=== PATIENT | male | born 1930 | race Caucasian/White ===

== ENCOUNTER 2018-09-24 04:45 | Inpatient (IN) | payer MEDICARE, OTHER ==
[2018-09-24] MEDS ORDERED: NS 0.9% 1000 ML** 2,000 ML IV ONE (05:02)
--- NOTE | 2018-09-24 05:22 | ED ---
GI/ HPI - HPI Summary HPI Summary: An 88 y/o male brought in by [facility] ambulance presents to [facility] with aa chief complaint of rectal bleeding. Per EMS, the patient was found in the bathroom. The patient reports that he started walking to the bathroom when he felt what he thought was stool leaving his rectum, but it turned out to be blood. He notes that he fell, and is unsure if he lost consciousness, but does not believe he did, or thinks that it may have only been for a few seconds. He reports that he has had a colonoscopy and had a polyp removed which turned out to be benign. Hx of Parkinsons. 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 Severity: Mild Current Severity: Mild Associated Signs and Symptoms: Positive: Blood w/Stool, Other: - fall, unsure if he lost consciousness - Additional Pertinent History Primary Care Physician: MAGO - Allergy/Home Medications Allergies/Adverse Reactions: Allergies Allergy/AdvReac Type Severity Reaction Status Date / Time MS Statins [Statins] Allergy Unknown Verified 03/17/16 09:54 Reaction Details PMH/Surg Hx/FS Hx/Imm Hx Endocrine/Hematology History: Reports: Hx Diabetes - DM2, Hx Thyroid Disease - Hypothyroidism Denies: Hx Anemia Cardiovascular History: Reports: Hx Coronary Artery Disease, Hx Hypercholesterolemia, Hx Hypertension Denies: Hx Deep Vein Thrombosis, Other Cardiovascular Problems/Disorders Respiratory History: Reports: Hx Seasonal Allergies Denies: Hx Asthma, Hx Chronic Obstructive Pulmonary Disease (COPD) GI History: Reports: Hx Gastroesophageal Reflux Disease, Other GI Disorders - CONSTIPATION Denies: Hx Hiatal Hernia History: Reports: Hx Benign Prostatic Hyperplasia, Other Problems/ Disorders - HX BPH, TURP, frequent UTIs Musculoskeletal History: Denies: Hx Arthritis, Hx Gout, Other Musculoskeletal History Sensory History: Reports: Hx Cataracts, Hx Contacts or Glasses Denies: Hx Hearing Aid Opthamlomology History: Reports: Hx Cataracts, Hx Contacts or Glasses Neurological History: Reports: Hx Nerve Disease - PARKINSONS DISEASE Denies: Hx Headaches, Hx Migraine, Hx Seizures, Hx Spinal Cord Injury, Other Neuro Impairments/Disorders - Surgical History Surgery Procedure, Year, and Place: TURP X3, [facility]. RIGHT CATARACT. Osteomyelitis R lower leg, R arm Hx Anesthesia Reactions: No - Family History Known Family History: Positive: Other - no FHx of anesthesia reaction Family History: No FHx anesthesia reaction - Social History Alcohol Use: None Alcohol Amount: 1 PER 2 DAYS Substance Use Type: Reports: None Smoking Status (MU): Former Smoker Have You Smoked in the Last Year: No Review of Systems Positive: Other - positive: rectal bleed Neurological: Other - Positive: unsure if he lost consciousness All Other Systems Reviewed And Are Negative: Yes Physical Exam - Summary Physical Exam Summary: Appearance: Elderly male lying in bed comfortably in no acute distress, vital signs show that the patient is hemodynamically stable. Skin: Warm, dry, no obvious rash, Dried blood in peritoneum and down both legs. Eyes: sclera anicteric, no conjunctival pallor ENT: mucous membranes moist, pharynx appears normal Neck: Supple, nontender Respiratory: Clear to auscultation, no signs of respiratory distress Cardiovascular: Normal S1, S2. No murmurs. Normal distal pulses in tibial and radial bilaterally. Abdomen: Soft, nontender, normal active bowel sounds present Musculoskeletal: Normal, Strength/ROM Intact Neurological: A&Ox3, awake and alert, mentation is normal, speech is fluent and appropriate Psychiatric: affect is normal, does not appear anxious or depressed Triage Information Reviewed: Yes Vital Signs Reviewed: Yes Diagnostics - Laboratory Result Diagrams: 09/24/18 05:50 09/24/18 05:50 Lab Statement: Any lab studies that have been ordered have been reviewed, and results considered in the medical decision making process. GIGU Course/Dx - Course Course Of Treatment: An 88 y/o male brought in by [facility] ambulance presents to [facility] with aa chief complaint of rectal bleeding. Per EMS, the patient was found in the bathroom. The patient reports that he started walking to the bathroom when he felt what he thought was stool leaving his rectum, but it turned out to be blood. He notes that he fell, and is unsure if he lost consciousness, but does not believe he did, or thinks that it may have only been for a few seconds. He reports that he has had a colonoscopy and had a polyp removed which turned out to be benign. Hx of Parkinsons. The physical exam showed that the patient is an elderly male lying in bed comfortably in no acute distress, vital signs show that the patient is hemodynamically stable, pt has dried blood in peritoneum and down both legs. In the ED course the patient was given sodium chloride IV. Bloodwork and chemistries obtained. Case discussed with Dr. Dougherty, hospitalist, who accepted the patient for admission. - Physician Notifications Discussed Care Of Patient With: Bill Dougherty Time Discussed With Above Provider: 06:53 Instructed by Provider To: Admit As Inpatient Discharge - Sign-Out/Discharge Documenting (check all that apply): Patient Departure - admit Patient Received Moderate/Deep Sedation with Procedure: No - Discharge Plan Condition: Fair Disposition: ADMITTED TO [facility] Referrals: Paul Blair MD [Primary Care Provider] - - Attestation Statements Document Initiated by Scribe: Yes Documenting Scribe: Sina Livingston Provider For Whom Scribe is Documenting (Include Credential): Trae Donovan MD Scribe Attestation: Sina Trammell, scribed for Trae Donovan MD on 09/24/18 at 0659. Status of Scribe Document: Ready
[2018-09-24 06:20] LABS: ABS Basophils 0 10^3/ul (0-0.2); ABS Eosinophils 0.2 10^3/ul (0-0.6); ABS Lymphocytes 0.9 10^3/ul (1.0-4.8); ABS Monocytes 0.9 10^3/ul (0-0.8); ABS Nucleated RBC 0 10^3/ul; Eosinophil % 1.4 %; Hematocrit 42 % (36-46); Lymphocyte % 8.3 %; Mean Corpuscular HGB Conc 33 g/dL (31-36); Mean Corpuscular Hemoglobin 30 pg (27-31); Mean Corpuscular Volume 89 fL (80-94); Mean Platelet Volume 8.9 fL (7.4-10.4); Nucleated Red Blood Cells % 0.1; Platelet Count 312 10^3/uL (150-450); Red Blood Count 4.74 10^6 /uL (4.18-5.48); Red Cell Distribution Width 13 % (10.5-15); White Blood Count 11.1 10^3/uL (3.5-10.8)
[2018-09-24 06:26] LABS: Activated Partial Thrombo Time 31.2 seconds (26.0-36.3); INR 0.99 (0.77-1.02)
[2018-09-24 06:37] LABS: Albumin 3.8 g/dL (3.2-5.2); Albumin/Globulin Ratio 1.2 (1-3); EGFR African American 58.8 (>60); EGFR Non-African American 48.6 (>60); Globulin 3.2 g/dL (2-4); Potassium 4.7 mmol/L (3.5-5.0); Total Bilirubin 0.5 mg/dL (0.2-1.0)
[2018-09-24] MEDS ORDERED: Pantoprazole IV* 40 MG IV ONE (09:31)
[2018-09-24 10:06] LABS: Urine Appearance Cloudy; Urine Bacteria Absent (Absent); Urine Bilirubin Negative (Negative); Urine Blood Negative (Negative); Urine Color Yellow; Urine Glucose 1+(50 mg/dL) (Negative); Urine Ketones Trace (Negative); Urine Nitrite Negative (Negative); Urine Protein Negative (Negative); Urine Red Blood Cell 2+(6-10/hpf) (Absent); Urine Specific Gravity 1.014 (1.010-1.030); Urine Squamous Epithelial Cell Present (Absent); Urine Urobilinogen Negative (Negative); Urine White Blood Cell 3+(>20/hpf) (Absent)
[2018-09-24] MEDS: Selegiline TAB* 5 MG PO SCH ×2 (10:36→11:46)
[2018-09-24] MEDS: rOPINIRole TAB* 1 MG PO SCH ×3 (10:37→20:39)
[2018-09-24] MEDS: Levothyroxine TAB* 50 MCG TAB PO SCH (10:37)
[2018-09-24] MEDS: Carbidopa/Levodop CR 50/200(*) TAB.CR PO SCH ×2 (10:37→14:49)
[2018-09-24] MEDS: Finasteride TAB* 5 MG PO SCH (10:37)
[2018-09-24] MEDS: NS 0.9% 1000 ML** 1,000 ML IV SCH ×2 (10:39→22:55)
[2018-09-24] MEDS: Levothyroxine TAB* 175 MCG TAB PO SCH (11:45)
[2018-09-24] MEDS ORDERED: PEG 3000 GI LAVAGE* 1 GALLON PO ONE (12:16)
[2018-09-24 12:25] LABS: ABS Basophils 0 10^3/ul (0-0.2); ABS Eosinophils 0.1 10^3/ul (0-0.6); ABS Lymphocytes 1.4 10^3/ul (1.0-4.8); ABS Neutrophils 9.2 10^3/ul (1.5-7.7); ABS Nucleated RBC 0 10^3/ul; Eosinophil % 1.2 %; Hematocrit 42 % (36-46); Hemoglobin 14.1 g/dL (14.0-18.0); Lymphocyte % 12.1 %; Mean Corpuscular HGB Conc 33 g/dL (31-36); Mean Corpuscular Hemoglobin 29 pg (27-31); Mean Corpuscular Volume 88 fL (80-94); Mean Platelet Volume 8.8 fL (7.4-10.4); Nucleated Red Blood Cells % 0; Platelet Count 315 10^3/uL (150-450); Red Cell Distribution Width 13 % (10.5-15); White Blood Count 11.8 10^3/uL (3.5-10.8)
--- NOTE | 2018-09-24 13:09 | HP ---
HISTORY AND PHYSICAL: DATE OF ADMISSION: 09/24/18 ATTENDING PROVIDER: Bill Dougherty MD PRIMARY CARE PROVIDER: Dr. Blair. CHIEF COMPLAINT: Bleeding per rectum followed by a fall. HISTORY OF PRESENT ILLNESS: Carson Edward is an 88-year-old male with past medical history of Parkinson's disease; coronary artery disease, status post LAD stent, 2008; hypertension; hyperlipidemia; hypothyroidism; BPH, status post TURP; GERD; wdd-drfmhlu-ujhiqlxwu diabetes mellitus, type 2. Around 3:30 morning of admission, he was ambulating to the bathroom; but right before he got to the toilet, he felt a little bit dizzy and fell, but did not lose consciousness and was noted to have bleeding that he did not get a good look at , but described per report as bright red blood. He was transported to the [facility] [place]. He was hemodynamically stable, heart rate is 71, blood pressure 142/69. Initial hemoglobin was 14.0, INR 0.99. He was referred to hospitalist service for admission and he has since had another bowel movement that was bright red blood with a few small clots and also a little bit of stool. He denies any abdominal pain, nausea, or vomiting. He does suffer from constipation problems for which he is on MiraLAX. Three weeks ago, he had a hard time defecating and gave himself a water enema and that helped to relieve some of the constipation, but still has hard pebble-like stools especially since then. He has, in the emergency room, been given 2 L of normal saline. Dr. Tatiana Dewey of GI has been consulted. On clarification, he is a little bit unclear on exactly when this episode of constipation requiring water enema was, first he said 3 weeks ago, then he said 3 days ago, then he said 2 weeks ago, then admitted he is not exactly sure. PAST MEDICAL HISTORY: Includes: 1. Parkinson's disease. 2. Coronary artery disease, status post LAD stent, 2008. 3. Hypertension. 4. Hyperlipidemia. 5. Hypothyroidism. 6. BPH, status post TURP. 7. Frequent urinary tract infections. 8. GERD. 9. Hib-xybjmvd-efmieacyc diabetes mellitus, type 2. PAST SURGICAL HISTORY: Includes surgeries for his right leg osteomyelitis, his right arm; these were many decades ago. MEDICATIONS: Include: 1. Omeprazole 20 mg daily. 2. Aspirin 81 mg daily. 3. Levothyroxine a total of 225 mcg p.o. daily (50 plus 175). 4. Finasteride 5 mg daily. 5. Selegiline 5 mg p.o. q.a.m. and at noon. 6. MiraLAX 17 g p.o. daily p.r.n. 7. Metformin 500 mg p.o. daily. 8. Ropinirole 1 mg p.o. t.i.d. 9. Rytary (carbidopa/levodopa) 48.75-195 mg 3 tabs each 3 times a day. The patient says that he does no longer takes meclizine 25 mg p.o. q.6 hours though it was recently filled at his pharmacy. ALLERGIES: He has intolerance to statins "making him sick." FAMILY HISTORY: His father of heart disease at age 84. His mother of heart disease at age 79. He has 2 sisters who are both older than him, who are absolutely healthy. 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 He is also a former 6-pack beer night drinker but he has drunk much much less since intermediate 18 years ago. He desires to be a full code though would probably not like prolonged life support. His medical surrogate is his daughter, Janet Salazar, residing in [place]. He has 2 home health aides/caregivers, one by the name of Martha, who are there approximately 2 to 3 hours each day. REVIEW OF SYSTEMS: A complete 14-point review of systems is negative except as per HPI specifically, he denies any shortness of breath, chest pain though he does get winded with a lot of exertion. Denies night sweats, though sometimes takes his blankets off. He has dropped a little bit of weight ever since his Parkinson's disease diagnosis 18 years ago, but nothing precipitous recently. PHYSICAL EXAMINATION GENERAL APPEARANCE: In no acute distress. VITAL SIGNS: Temperature 98.1, heart rate 71, respiratory rate 18 to 28, satting 98% on room air, and blood pressure 142/69. HEENT: Normocephalic, atraumatic. Pupils are equal, round, and reactive to light. Extraocular motions intact. No scleral icterus. NECK: Supple. LUNGS: Clear to auscultation bilaterally with no wheezing, rales, or rhonchi. CARDIO: Regular rate and rhythm. No murmurs, rubs, or gallops. ABDOMEN: Soft. Some slight tenderness, right lower quadrant. He also has some slight tenderness of right flank. No rebound or guarding. EXTREMITIES: Warm, well perfused. No edema. RECTAL: No appreciable external or internal hemorrhoids. Shankar bright red blood present. NEURO: Cranial nerves II through XII intact. No cogwheel rigidity. Commercial Singer strength intact. SKIN: No lesions. No rashes. DIAGNOSTIC STUDIES: Imaging: None. ASSESSMENT AND PLAN: Carson Edward is an 88-year-old male with past medical history of rnu-byports-aqnnifagy diabetes mellitus; Parkinson's disease ; hypothyroidism; coronary artery disease, status post left anterior descending artery stent. He is presenting with episode of acute bright red blood per rectum found at home and now again in the emergency room. Hemoglobin is stable at 14.0, we will track that every 6 hours. He is status post 2 L IV fluid bolus , continue normal saline at 125 cc an hour, n.p.o. except for meds. Dr. Tatiana Dewey of GI has been consulted, who did a rectal exam. Differential includes likely lower gastrointestinal bleed or very brisk upper gastrointestinal bleed, which I thought because as likely considering his hemodynamic stability and lack of NSAID use, has at most diverticulosis, possible hemorrhoid, arteriovenous malformation, possible colon cancer. We will follow up GI recommendations. Possible but he may need a colonoscopy during this admission depending on clinical course. I think he is stable for telemetry floor and does not need to come into the ICU. For his Parkinson's disease, continue his carbidopa/levodopa with formulary substitute for his Rytary to Sinemet 3 tabs 3 times a day. He takes 1600 and 2400. Also, continue his ropinirole and selegiline 5 mg twice a day, q.a.m. and noon. For his restless legs syndrome, continue his ropinirole 1 mg t.i.d. For his coronary artery disease, continue his aspirin 81 mg daily, but hold it until tomorrow. If still actively bleeding, we would stop it or hold it. I am just going to cancel it for now. Give him IV Protonix 80 mg IV once and 40 mg IV daily. He does have frequent urinary tract infections, has some right flank pain for few weeks, , afebrile, we will follow up the urinalysis. He is a full code. Medical surrogate is his daughter, Janet Salazar. We will call Martha Akbar, one of his aides, to inform of admission and see if she can bring in his Rytary. [id number]/[facility] #: [id number] [facility] HOSPITALFadi
--- NOTE | 2018-09-24 14:06 | CONS ---
GASTROENTEROLOGY CONSULTATION REPORT: DATE OF CONSULT: 09/24/18 REQUESTING CONSULT: Dr. Dougherty. REASON FOR CONSULT: Rectal bleeding. HISTORY OF PRESENT ILLNESS: Mr. Edward is an 88-year-old English gentleman with a history of Parkinson's disease; coronary artery disease status post stenting, diabetes, hypertension, hyperlipidemia, and hypothyroidism, who is admitted with rectal bleeding x1 day. Mr. Edward reports that he was in usual state of health until early this morning when he felt the urge to have a bowel movement. He got up to go to the bathroom when he noticed blood dripping down his leg. He then went to sit down on the toilet and fell. He is fairly confident that he did not lose consciousness. He thinks that this was a mechanical fall. He was brought to the ER by ambulance. On interview, Mr. Edward states that he feels well overall. He has had some discomfort along his right flank, but it seems to be worse in certain positions or with straining. Denies any abdominal pain, nausea, or vomiting. He had a history of reflux symptoms long time ago, although this resolved after his CABG which would argue that this was more cardiac-related chest pain. He has a history of constipation with significant constipation last week for which he used MiraLAX. He thinks his last colonoscopy was around age 70. He thinks that a polyp may have been removed, although he also mentions having hemorrhoids. No prior history of GI bleeding. PAST MEDICAL HISTORY: 1. Parkinson's disease. 2. Cardiac disease, status post stenting (no recent stents). 3. Diabetes. 4. Hypothyroidism. 5. Hyperlipidemia. 6. Hypertension. 7. Constipation. 8. BPH. 9. Cataracts. PAST SURGICAL HISTORY: 1. TURP x3. 2. Right cataract surgery. MEDICATIONS: 1. Aspirin 81 mg daily. 2. Proscar 5 mg daily. 3. Levothyroxine daily (dose unclear). 4. Metformin 500 mg daily. 5. Omeprazole 20 mg daily. 6. Ropinirole 1 mg t.i.d. 7. Rytary. 8. Selegiline 5 mg daily in the morning and at 12:00 p.m. 9. MiraLAX p.r.n. 10. Meclizine p.r.n. ALLERGIES: The patient reports allergies to STATINS. FAMILY HISTORY: No known GI or liver disease. SOCIAL HISTORY: No recent alcohol use. No drug use. Former smoker. The patient is from [facility]. REVIEW OF SYSTEMS: Complete review of systems is reviewed and negative except as above. PHYSICAL EXAM: Vital Signs: Temp 97.9, heart rate 68, blood pressure 164/89, 96% on room air. General: Very pleasant elderly gentleman. In no acute distress. The patient is a fairly good historian. HEENT: Mucous membranes moist. Intact sclerae. Cardiovascular: Regular rate and rhythm. Pulm: Lungs clear to auscultation inferiorly. Abdomen: Soft, nontender, nondistended. +BS. Rectal: JOSE J performed, no external hemorrhoids. There was a small amount of bright red blood seen on rectal exam. Skin: No jaundice. Neuro: A and O x3. DIAGNOSTIC STUDIES/LAB DATA: White count 11.1, hemoglobin 14, hematocrit 42, platelet count 312. INR 0.99. Sodium 137, BUN 29, creatinine 1.38. ALT is low at 3, otherwise LFT panel is normal. Imaging: None. IMPRESSION AND PLAN: Mr. Edward is an 88-year-old gentleman with medical history of coronary artery disease, status post stenting, on aspirin; Parkinson' s disease; diabetes; hypertension; hyperlipidemia; and hypothyroidism, who was admitted with rectal bleeding x1 day and fall. Mr. Edward has been hemodynamically stable since admission. We only have 1 set of labs so far, which demonstrated a normal H&H. Mr. Edward does have some red blood on rectal exam, although he is not passing large volumes of bloody stools. Favor a diagnosis of diverticular bleeding in this patient. Differential also includes arteriovenous malformation. I have a lower suspicion for an upper gastrointestinal bleed, although I am including this on differential given the fall this morning as I am unable to definitively say that he did not have a syncopal event. I discussed possible sources of bleeding with Mr. Edward and the various ways to approach his case. At this point, I would recommend giving Mr. Edward some laxative for colon purge. I would like to see if the blood clears with laxative which would suggest resolved bleeding. If the blood counts drop or fail to plateau and/or the bleeding does not clear with laxative , then I would recommend pursuing endoscopic evaluation. Mr. Edward is in agreement with this plan. Additionally, if the blood counts drop significantly and/or stool is noted to become more melenic, then I would favor an EGD to rule out a brisk upper gastrointestinal bleed. I think that this is an unlikely scenario given the patient's clinical stability and absence of melena on current exam. - Continue to monitor CBC every 6 to 8 hours. The patient is due for a blood draw now which I expect might show some drop. - Recommend clear diet for now. - Please order the patient GoLYTELY and place at his bedside. I would recommend that he try to drink at least one-third or half of the GoLYTELY prep to help with the colonic purge. If the bleeding resolves and his labs are not showing a precipitous drop, then he can discontinue drinking the prep. Conversely, if he continues to have bleeding and/or labs are dropping, then I would recommend that he continue the prep with a tentative plan for a colonoscopy tomorrow. Dr. Fernandez will discuss the case with the patient's team tomorrow to determine final plans. - PPI IV b.i.d. for now is reasonable. This can be discontinued within the next 24 hours if concern remains low for upper gastrointestinal bleed. - Would recommend continuing aspirin 81 mg daily given the patient's CAD history. Thank you very much for this consult. Please contact GI for any acute clinical change. [id number]/[facility] #: [id number] MENG
[2018-09-24] MEDS: Aspirin 81 mg CHEW TAB* 81 MG TAB.CHEW PO SCH (14:49)
[2018-09-24] MEDS: LEVODOPA PO SCH (15:32)
[2018-09-24] MEDS: Fludrocortisone Acetate TAB* 0.1 MG PO SCH (15:32)
[2018-09-24] MEDS: CARBIDOPA PO SCH (15:32)
[2018-09-24 18:59] LABS: ABS Basophils 0 10^3/ul (0-0.2); ABS Eosinophils 0.1 10^3/ul (0-0.6); ABS Lymphocytes 1.1 10^3/ul (1.0-4.8); ABS Monocytes 0.8 10^3/ul (0-0.8); ABS Neutrophils 7.1 10^3/ul (1.5-7.7); ABS Nucleated RBC 0 10^3/ul; Eosinophil % 1.5 %; Hematocrit 39 % (36-46); Lymphocyte % 12.1 %; Mean Corpuscular HGB Conc 33 g/dL (31-36); Mean Corpuscular Hemoglobin 29 pg (27-31); Mean Corpuscular Volume 88 fL (80-94); Mean Platelet Volume 8.8 fL (7.4-10.4); Nucleated Red Blood Cells % 0; Platelet Count 303 10^3/uL (150-450); Red Blood Count 4.43 10^6 /uL (4.18-5.48); Red Cell Distribution Width 13 % (10.5-15); White Blood Count 9.1 10^3/uL (3.5-10.8)
--- NOTE | 2018-09-24 19:33 | CONS ---
GASTROENTEROLOGY CONSULT: ADDENDUM: Differential should also include internal hemorrhoids. Rectal exam may be limited in ability to identify internal hemorrhoids. [id number]/[facility] #: [id number] [facility]
[2018-09-25] MEDS: LEVODOPA PO SCH ×3 (00:10→15:12)
[2018-09-25] MEDS: CARBIDOPA PO SCH ×3 (00:10→15:12)
[2018-09-25 00:58] LABS: ABS Basophils 0 10^3/ul (0-0.2); ABS Eosinophils 0.2 10^3/ul (0-0.6); ABS Lymphocytes 1.4 10^3/ul (1.0-4.8); ABS Monocytes 1.2 10^3/ul (0-0.8); ABS Neutrophils 6.9 10^3/ul (1.5-7.7); ABS Nucleated RBC 0 10^3/ul; Eosinophil % 2.2 %; Hematocrit 39 % (36-46); Hemoglobin 12.8 g/dL (14.0-18.0); Lymphocyte % 14.6 %; Mean Corpuscular HGB Conc 33 g/dL (31-36); Mean Corpuscular Hemoglobin 29 pg (27-31); Mean Corpuscular Volume 88 fL (80-94); Mean Platelet Volume 8.9 fL (7.4-10.4); Nucleated Red Blood Cells % 0.1; Platelet Count 282 10^3/uL (150-450); Red Cell Distribution Width 13 % (10.5-15); White Blood Count 9.8 10^3/uL (3.5-10.8)
[2018-09-25] MEDS: Levothyroxine TAB* 175 MCG TAB PO SCH (05:50)
[2018-09-25] MEDS: Levothyroxine TAB* 50 MCG TAB PO SCH (05:50)
[2018-09-25 06:10] LABS: ABS Basophils 0 10^3/ul (0-0.2); ABS Eosinophils 0.2 10^3/ul (0-0.6); ABS Lymphocytes 1.5 10^3/ul (1.0-4.8); ABS Monocytes 0.8 10^3/ul (0-0.8); ABS Neutrophils 5.8 10^3/ul (1.5-7.7); ABS Nucleated RBC 0 10^3/ul; Eosinophil % 2.4 %; Hematocrit 40 % (36-46); Hemoglobin 13.4 g/dL (14.0-18.0); Lymphocyte % 17.5 %; Mean Corpuscular HGB Conc 34 g/dL (31-36); Mean Corpuscular Hemoglobin 30 pg (27-31); Mean Corpuscular Volume 87 fL (80-94); Mean Platelet Volume 8.9 fL (7.4-10.4); Nucleated Red Blood Cells % 0; Platelet Count 303 10^3/uL (150-450); Red Blood Count 4.54 10^6 /uL (4.18-5.48); Red Cell Distribution Width 13 % (10.5-15); White Blood Count 8.3 10^3/uL (3.5-10.8)
[2018-09-25 06:26] LABS: BUN/Creatinine Ratio 17.3 (8-20); Calcium 8.4 mg/dL (8.6-10.3); EGFR African American 81.6 (>60); EGFR Non-African American 67.4 (>60); Potassium 3.9 mmol/L (3.5-5.0)
[2018-09-25] MEDS ORDERED: NON FORMULARY MED2 PO SCH (08:00)
[2018-09-25] MEDS: NS 0.9% 1000 ML** 1,000 ML IV SCH (08:14)
[2018-09-25] MEDS: rOPINIRole TAB* 1 MG PO SCH ×2 (08:15→15:12)
[2018-09-25] MEDS: Aspirin 81 mg CHEW TAB* 81 MG TAB.CHEW PO SCH (08:15)
[2018-09-25] MEDS: Finasteride TAB* 5 MG PO SCH (08:15)
[2018-09-25] MEDS: Fludrocortisone Acetate TAB* 0.1 MG PO SCH (08:15)
[2018-09-25] MEDS: Selegiline TAB* 5 MG PO SCH ×2 (08:15→11:40)
[2018-09-25] MEDS ORDERED: Aspirin EC TAB* 81 MG TAB.EC PO SCH (09:00)
[2018-09-25] MEDS ORDERED: Pantoprazole IV* 40 MG IV SCH (09:00)
--- NOTE | 2018-09-25 10:48 | PN ---
Subjective Date of Service: 09/25/18 Interval History: HOSPITALIST PROGRESS NOTE Patient seen and examined at bedside. Care reviewed and d/w Marek Raman RN. As per RN, patient had large BMs earlier today. The first one had blood clots, but the last one had no gross blood. Patient had less than half of his Golytely and reluctant to drink the rest. He denies abdominal pain, N/V. Family History: Unchanged from Admission Social History: Unchanged from Admission Past Medical History: Unchanged from Admission Objective Active Medications: Aspirin (Aspirin 81 Mg Chew Tab*) 81 mg PO DAILY [facility] Last Admin: 09/25/18 08:15 Dose: 81 mg Carbidopa/Levodopa (Rytary Er 48.75 Mg-195 Mg Cap) 3 cap PO TID@0000,0800,1600 [facility] Last Admin: 09/25/18 08:15 Dose: 3 cap Finasteride (Proscar Tab*) 5 mg PO DAILY [facility] Last Admin: 09/25/18 08:15 Dose: 5 mg Fludrocortisone Acetate (Florinef Tab*) 0.1 mg PO DAILY [facility] Last Admin: 09/25/18 08:15 Dose: 0.1 mg Sodium Chloride (Ns 0.9% 1000 Ml) 1,000 mls @ 125 mls/hr IV PER RATE [facility] Last Admin: 09/25/18 08:14 Dose: 125 mls/hr Levothyroxine Sodium (Synthroid Tab*) 175 mcg PO DAILY@0600 [facility] Last Admin: 09/25/18 05:50 Dose: 175 mcg Levothyroxine Sodium (Synthroid Tab*) 50 mcg PO DAILY@0600 [facility] Last Admin: 09/25/18 05:50 Dose: 50 mcg Pantoprazole Sodium (Protonix Iv*) 40 mg IV DAILY [facility] Last Admin: 09/25/18 08:15 Dose: 40 mg Ropinirole HCl (Requip Tab*) 1 mg PO TID [facility] Last Admin: 09/25/18 08:15 Dose: 1 mg Selegiline HCl (Eldepryl Tab*) 5 mg PO QAM [facility] Last Admin: 09/25/18 08:15 Dose: 5 mg Selegiline HCl (Eldepryl Tab*) 5 mg PO 1200 [facility] Last Admin: 09/24/18 11:46 Dose: 5 mg Vital Signs - 8 hr 09/25/18 09/25/18 07:41 08:00 Temperature 97.3 F Pulse Rate 72 Respiratory 16 18 Rate Blood Pressure 148/76 (mmHg) O2 Sat by Pulse 100 Oximetry Oxygen Devices in Use Now: None Appearance: Pleasant elderly gentleman sitting up in a chair in NAD. Eyes: No Scleral Icterus Ears/Nose/Mouth/Throat: Mucous Membranes Moist Neck: Trachea Midline Respiratory: Symmetrical Chest Expansion and Respiratory Effort, Clear to Auscultation Cardiovascular: RRR - Normal S1 and S2 Abdominal: NL Sounds; No Tenderness; No Distention Neurological: - - AAOx2 (self and place), FRANCO Result Diagrams: 09/25/18 11:49 09/25/18 05:45 Assess/Plan/Problems-Billing Assessment: Mr Edward is an 88yo M with PMH of Parkison's disease, CAD, HTN, HLD, hypothyroidism, BPH, GERD, type 2 DM, who presented to ED with painless hematochezia suggestive of diverticular bleed. - Patient Problems (1) Hematochezia Comment: - Suspect diverticular in nature. - Patient reluctant to drink his Golytely, because he thinks the bleeding has stopped. I explained the idea is for him to complete his prep because if he bleeds again he would then have a colonoscopy. He's in agreement but will need lots of reminders - RN aware. - H/H is stable around 13/40. - Continue to monitor. (2) CAD (coronary artery disease) Comment: - Continue Aspirin. (3) Parkinson disease Comment: - Continue Carbidopa/levodopa, selegiline and ropinirole. (4) DVT prophylaxis Comment: - Pharmacological prophylaxis contraindicated in the setting of GI bleed. - SCDs. (5) Full code status Status and Disposition: Inpatient. Continue to monitor H/H. Anticipate d/c in AM if stable.
[2018-09-25 12:07] LABS: ABS Basophils 0 10^3/ul (0-0.2); ABS Eosinophils 0.2 10^3/ul (0-0.6); ABS Lymphocytes 1.2 10^3/ul (1.0-4.8); ABS Monocytes 0.9 10^3/ul (0-0.8); ABS Neutrophils 6.4 10^3/ul (1.5-7.7); ABS Nucleated RBC 0 10^3/ul; Eosinophil % 1.9 %; Hematocrit 40 % (36-46); Lymphocyte % 13.4 %; Mean Corpuscular HGB Conc 33 g/dL (31-36); Mean Corpuscular Hemoglobin 29 pg (27-31); Mean Corpuscular Volume 89 fL (80-94); Mean Platelet Volume 9.3 fL (7.4-10.4); Nucleated Red Blood Cells % 0.1; Platelet Count 293 10^3/uL (150-450); Red Blood Count 4.48 10^6 /uL (4.18-5.48); Red Cell Distribution Width 13 % (10.5-15); White Blood Count 8.6 10^3/uL (3.5-10.8)
--- NOTE | 2018-09-25 15:45 | PN ---
Progress Note - Progress Note Date of Service: 09/25/18 Note: went to see pt at approx. noon today; 2 security officers present in pt's room; I introduced myself to the pt; he was confused as to what type of physician I was, but when he finally realized I was a "colon" doctor, he told me that I was not to exam his colon; when I tried to explain why I was there, he said that he had stopped bleeding and his heart was fine; when I commented about the partially full cups of Golytely on his table, he said that he will not drink anymore of that stuff and told me that I was not needed by him anymore and to go away. From reading the chart, I am unsure if this is an acute change in his MS or chronic issue. Unable to do much for him right now, given his comments. Please re-call GI if pt changes his mind. Thank you. Hgb stable at 13, VSS Pradip Fernandez MD [facility]
[2018-09-25 16:49] VITALS: BP 138/82
--- NOTE | 2018-09-26 11:35 | DS ---
CC: Dr. Paul Blair* DISCHARGE SUMMARY: DATE OF ADMISSION: 09/24/18 DATE OF DISCHARGE: AMA 09/25/18 PRIMARY CARE PROVIDER: Dr. Paul Blair. DISCHARGE DIAGNOSES: Lower gastrointestinal bleed. DISPOSITION: To home. CONDITION: Improved. HISTORY OF PRESENT ILLNESS: An 88-year-old man with Parkinson disease and dementia, coronary artery disease, status post LAD stent 2008, hypertension, hypothyroidism, BPH, status post TURP, type 2 diabetes, presents after a fall on the morning of presentation. While ambulating to the bathroom, he felt dizzy , fell, but did not lose consciousness. When he tried to have a bowel movement , he noticed bright red blood. HOSPITAL COURSE: In the emergency room, initial hemoglobin was 14 with normal INR. He had a bowel movement in the emergency room that was also bright red blood with a few small clots. The patient had denied abdominal pain, nausea, vomiting. The patient was given 2 L of normal saline in the emergency room with repeat hemoglobin decreasing to 13. Hemoglobin throughout evening on day of admission and again on subsequent day had all remained stable. Dr. Melinda Razo of GI was consulted. GI recommended drinking GoLYTELY prep with plan for colonoscopy the following day if hemoglobin downtrended, but the patient can discontinue GI prep if hemoglobin had remained stable. The patient had been declining colonoscopy and states that as he feels fine, he would prefer to return home. He was deemed to not have capacity to refuse medical care given his baseline dementia; however, on night of AMA discharge, the patient's caregiver and next of kin was at bedside and states that she also agrees that he should be able to go home and refuse medical care. She understands the risk of leaving (continued bleed, ) and why we wanted to keep the patient admitted to the hospital. She states she can stay with him in his home and bring him to follow up with his primary care physician within the week. DISCHARGE PLAN: The patient is to return home with his caregiver. They will follow up with PCP within 1 week with a repeat CBC for monitoring. He is to resume his home medications as before. TIME SPENT: Less than 30 minutes spent on this discharge, approximately half of which spent at bedside interviewing patient and discussing risks of leaving against medical advice. [id number]/[facility] #: [id number] [facility]OSPITALFadi
== END 2018-09-25 22:54 | disposition left against medical advice (07) | DRG 379 ==
LOC: ED 04:45 → MEDTELE 08:21
PROVIDERS: ADMIT Internal Medicine; ATTEND Internal Medicine
DX: K92.2 Gastrointestinal hemorrhage, unspecified (principal); E03.9 Hypothyroidism, unspecified; I25.10 Atherosclerotic heart disease of native coronary artery without angina pectoris; I10 Essential (primary) hypertension; E78.00 Pure hypercholesterolemia, unspecified; J30.1 Allergic rhinitis due to pollen; K21.9 Gastro-esophageal reflux disease without esophagitis; N40.0 Benign prostatic hyperplasia without lower urinary tract symptoms; E11.36 Type 2 diabetes mellitus with diabetic cataract; G20 Parkinson's disease; F02.80 Dementia in other diseases classified elsewhere, unspecified severity, without behavioral disturbance, psychotic disturbance, mood disturbance, and anxiety; G25.81 Restless legs syndrome; W17.89XA Other fall from one level to another, initial encounter; E78.5 Hyperlipidemia, unspecified; Z87.440 Personal history of urinary (tract) infections; Z98.41 Cataract extraction status, right eye; Z88.8 Allergy status to other drugs, medicaments and biological substances; Z87.891 Personal history of nicotine dependence; Z95.5 Presence of coronary angioplasty implant and graft; Z82.49 Family history of ischemic heart disease and other diseases of the circulatory system; Y92.002 Bathroom of unspecified non-institutional (private) residence as the place of occurrence of the external cause
CPT/HCPCS: 36415; 80048; 80053; 81003; 81015; 85025; 85610; 85730; 86850; 86900; 86901; 87077; 87086; 87186; 99284; A9270-GY

== ENCOUNTER 2018-09-27 03:12 | Inpatient (IN) | payer MEDICARE, OTHER ==
--- NOTE | 2018-09-27 03:33 | ED ---
GI/ HPI - HPI Summary HPI Summary: This patient is an 88 year old M brought in by ambulance to ED with a chief complaint of rectal bleeding at 0130 today. He was seen in the ED 3 days ago for one episode of rectal bleeding 4 days ago. He says that he was not bleeding yesterday. The patient lives by himself. The patient rates the pain 0/10 in severity. Symptoms aggravated by nothing. Symptoms alleviated by nothing. Patient denies LOC and any pain. - History of Current Complaint Time Seen by Provider: 09/27/18 03:14 Stated Complaint: "RECTAL BLEED" PER EMS Hx Obtained From: Patient Onset/Duration: Started Hours Ago, Resolved Timing: Intermittent Current Severity: None Associated Signs and Symptoms: Positive: Blood w/Stool, Other: - denies any pain and LOC - Additional Pertinent History Primary Care Physician: [id number] - Allergy/Home Medications Allergies/Adverse Reactions: Allergies Allergy/AdvReac Type Severity Reaction Status Date / Time Bvmudid-Sab-Tbh Reductase Allergy Unknown Verified 09/24/18 09:43 Inhibitor Reaction Details PMH/Surg Hx/FS Hx/Imm Hx Endocrine/Hematology History: Reports: Hx Diabetes - DM2, Hx Thyroid Disease - Hypothyroidism Denies: Hx Anemia Cardiovascular History: Reports: Hx Coronary Artery Disease, Hx Hypercholesterolemia, Hx Hypertension Denies: Hx Deep Vein Thrombosis, Other Cardiovascular Problems/Disorders Respiratory History: Reports: Hx Seasonal Allergies Denies: Hx Asthma, Hx Chronic Obstructive Pulmonary Disease (COPD) GI History: Reports: Hx Gastroesophageal Reflux Disease, Other GI Disorders - CONSTIPATION Denies: Hx Hiatal Hernia History: Reports: Hx Benign Prostatic Hyperplasia, Other Problems/ Disorders - HX BPH, TURP, frequent UTIs Musculoskeletal History: Denies: Hx Arthritis, Hx Gout, Other Musculoskeletal History Sensory History: Reports: Hx Cataracts, Hx Contacts or Glasses Denies: Hx Hearing Aid Opthamlomology History: Reports: Hx Cataracts, Hx Contacts or Glasses Neurological History: Reports: Hx Nerve Disease - PARKINSONS DISEASE Denies: Hx Headaches, Hx Migraine, Hx Seizures, Hx Spinal Cord Injury, Other Neuro Impairments/Disorders - Surgical History Surgery Procedure, Year, and Place: TURP X3, [facility]. RIGHT CATARACT. Osteomyelitis R lower leg, R arm Hx Anesthesia Reactions: No - Family History Known Family History: Positive: Other - no FHx of anesthesia reaction Family History: No FHx anesthesia reaction - Social History Alcohol Use: Rare Alcohol Amount: 1 PER 2 DAYS Substance Use Type: Reports: None Smoking Status (MU): Former Smoker Have You Smoked in the Last Year: No Review of Systems Positive: Other - denies any pain Positive: Other - rectal bleeding Neurological: Other - denies LOC All Other Systems Reviewed And Are Negative: Yes Physical Exam - Summary Physical Exam Summary: VITAL SIGNS: Reviewed. GENERAL: Patient is an elderly, well-developed, and nourished MALE OR FEMALE who is lying comfortable in the stretcher. Patient is not in any acute respiratory distress. HEAD AND FACE: No signs of trauma. No ecchymosis, hematomas or skull depressions. No sinus tenderness. EYES: PERRLA, EOMI x 2, No injected conjunctiva, no nystagmus. EARS: Hearing grossly intact. Ear canals and tympanic membranes are within normal limits. MOUTH: Oropharynx within normal limits. NECK: Supple, trachea is midline, no adenopathy, no JVD, no carotid bruit, no c- spine tenderness, neck with full ROM. CHEST: Symmetric, no tenderness at palpation LUNGS: Clear to auscultation bilaterally. No wheezing or crackles. CVS: Regular rate and rhythm, S1 and S2 present, no murmurs or gallops appreciated. ABDOMEN: Soft, non-tender. No signs of distention. No rebound no guarding, and no masses palpated. Bowel sounds are normal. EXTREMITIES: FROM in all major joints, no edema, no cyanosis or clubbing. NEURO: Alert and oriented x 3. He was able to give us some hx. No acute neurological deficits. Speech is normal and follows commands. SKIN: Dry and warm RECTAL EXAM: He has blood in his underwear, however there was no active bleeding. Red blood seen on finger exam. No masses and no external hemorrhoids seen. Triage Information Reviewed: Yes Vital Signs On Initial Exam: Initial Vitals Temp Pulse Resp BP Pulse Ox 97.9 F 79 18 119/75 94 09/27/18 03:20 09/27/18 03:20 09/27/18 03:20 09/27/18 03:20 09/27/18 03:20 Vital Signs Reviewed: Yes Diagnostics - Laboratory Result Diagrams: 09/27/18 03:47 09/27/18 03:47 Lab Statement: Any lab studies that have been ordered have been reviewed, and results considered in the medical decision making process. - EKG 0336 Cardiac Rate: NL - 80 BPM EKG Rhythm: Sinus Rhythm Summary of EKG Findings: Normal axis. Normal interval. No ischemic changes. GIGU Course/Dx - Course Assessment/Plan: This patient is an 88 year old M presenting to ED with a chief complaint of rectal bleeding at 0130 today. The patient was admitted on 09/24/18 with rectal bleeding. He was signed out by his videogame designer on 09/26/18. It seems that he refused a colonoscopy. In the ED course, the patient was given fluids. EKG reveals NSR at 80 BPM, normal axis, normal interval, and no ischemic changes. Consulted Dr. Miller about the patient's case and she accepts the patient for admission. The patient will be admitted with dx of lower GI bleed. Patient understands and agrees with this plan. - Diagnoses Differential Diagnoses - Male: Other - lower GI bleed Provider Diagnoses: Lower GI bleed - Physician Notifications Discussed Care Of Patient With: Elva Miller Time Discussed With Above Provider: 04:47 Instructed by Provider To: Admit As Inpatient - Critical Care Time Critical Care Time: 30-74 min - 35 minutes Discharge - Sign-Out/Discharge Documenting (check all that apply): Patient Departure - admit Patient Received Moderate/Deep Sedation with Procedure: No - Discharge Plan Condition: Stable Disposition: ADMITTED TO [facility] Referrals: Paul Blair MD [Primary Care Provider] - - Attestation Statements Document Initiated by Scribe: Yes Documenting Scribe: Johnathan Salgado Provider For Whom Scribe is Documenting (Include Credential): Neda Garcia MD Scribe Attestation: Johnathan Trammell scribed for Neda Garcia MD on 09/27/18 at 0447. Status of Scribe Document: Ready
[2018-09-27 03:59] LABS: ABS Basophils 0.1 10^3/ul (0-0.2); ABS Eosinophils 0.2 10^3/ul (0-0.6); ABS Lymphocytes 1.3 10^3/ul (1.0-4.8); ABS Neutrophils 7.7 10^3/ul (1.5-7.7); ABS Nucleated RBC 0 10^3/ul; Eosinophil % 1.8 %; Hematocrit 37 % (36-46); Hemoglobin 12.3 g/dL (14.0-18.0); Mean Corpuscular HGB Conc 34 g/dL (31-36); Mean Corpuscular Hemoglobin 30 pg (27-31); Mean Corpuscular Volume 88 fL (80-94); Mean Platelet Volume 9.3 fL (7.4-10.4); Nucleated Red Blood Cells % 0; Platelet Count 328 10^3/uL (150-450); Red Blood Count 4.15 10^6 /uL (4.18-5.48); Red Cell Distribution Width 13 % (10.5-15); White Blood Count 10.3 10^3/uL (3.5-10.8)
[2018-09-27 04:08] LABS: Activated Partial Thrombo Time 32.4 seconds (26.0-36.3); INR 1.04 (0.77-1.02)
[2018-09-27 04:15] LABS: Albumin 3.7 g/dL (3.2-5.2); Albumin/Globulin Ratio 1.3 (1-3); BUN/Creatinine Ratio 12.2 (8-20); Calcium 8.7 mg/dL (8.6-10.3); EGFR African American 58.4 (>60); EGFR Non-African American 48.2 (>60); Globulin 2.9 g/dL (2-4); Potassium 4.1 mmol/L (3.5-5.0); Total Bilirubin 0.5 mg/dL (0.2-1.0); Total Protein 6.6 g/dL (6.4-8.9)
[2018-09-27] MEDS: NS 0.9% 1000 ML** 1,000 ML IV SCH ×2 (04:24→20:16)
[2018-09-27] MEDS ORDERED: Acetaminophen TAB* 325 MG PO PRN (06:15)
[2018-09-27] MEDS ORDERED: LEVODOPA PO SCH (09:00)
[2018-09-27] MEDS ORDERED: CARBIDOPA PO SCH (09:00)
--- NOTE | 2018-09-27 09:17 | HP ---
HISTORY AND PHYSICAL: ADDENDUM: DIAGNOSTIC STUDIES/LAB DATA: Hemoglobin is 12.3 from baseline 13 on discharge 2 days ago, INR 1.04, creatinine 1.39 which is at baseline from prior admission, BUN 17. LFTs unremarkable. ASSESSMENT AND PLAN: An 88-year-old man with Parkinson disease, diabetes, hypothyroid, coronary tasha ry disease, is presenting with acute bright red blood per rectum, likely lower gastrointestinal bleed , although brisk upper gastrointestinal bleed is likely; however, would expect the patient's hemoglob in to be much lower, blood to be mixed with black, and also BUN to be more elevated, most likely dive rticulosis, hemorrhoid, arteriovenous malformation but also could be colon cancer. 1. Gastrointestinal bleed. We will continue to monitor hemoglobin closely, likely that he will need a colonoscopy again during this admission, although he refused that last admission. We will consult GI this morning. 2. Parkinson disease. Continue carbidopa/levodopa formulary substitute. 3. For coronary artery disease, we will hold the patient's aspirin. The patient is full code with monty jimenez proxy Janet Leung. The patient also states he allows Martha Akbar, one of his home healt h aides, to make decisions for him and she is his closest local contact. TIME SPENT: Approximately 60 minutes spent on admission of this patient, more than half of which was spent at bedside for interview and exam. [id number]/[facility] #: [id number]
[2018-09-27] MEDS ORDERED: Levothyroxine TAB* 100 MCG TAB ONE (09:34)
[2018-09-27] MEDS ORDERED: Levothyroxine TAB* 75 MCG TAB ONE (09:35)
[2018-09-27] MEDS: Fludrocortisone Acetate TAB* 0.1 MG PO SCH (09:42)
[2018-09-27] MEDS: Pantoprazole TAB * 40 MG TAB PO SCH (09:42)
[2018-09-27] MEDS: Finasteride TAB* 5 MG PO SCH (09:43)
[2018-09-27] MEDS: Levothyroxine TAB* 175 MCG TAB PO SCH (09:43)
[2018-09-27] MEDS: Levothyroxine TAB* 50 MCG TAB PO SCH (09:43)
[2018-09-27] MEDS: rOPINIRole TAB* 1 MG PO SCH ×3 (11:02→20:15)
[2018-09-27] MEDS: Selegiline TAB* 5 MG PO SCH ×2 (11:02→14:31)
[2018-09-27 12:11] LABS: ABS Basophils 0 10^3/ul (0-0.2); ABS Eosinophils 0.2 10^3/ul (0-0.6); ABS Lymphocytes 1.3 10^3/ul (1.0-4.8); ABS Monocytes 0.8 10^3/ul (0-0.8); ABS Nucleated RBC 0 10^3/ul; Eosinophil % 2.1 %; Hematocrit 35 % (36-46); Hemoglobin 11.7 g/dL (14.0-18.0); Lymphocyte % 15.6 %; Mean Corpuscular HGB Conc 34 g/dL (31-36); Mean Corpuscular Hemoglobin 30 pg (27-31); Mean Corpuscular Volume 88 fL (80-94); Nucleated Red Blood Cells % 0.1; Platelet Count 286 10^3/uL (150-450); Red Blood Count 3.95 10^6 /uL (4.18-5.48); Red Cell Distribution Width 13 % (10.5-15); White Blood Count 8.3 10^3/uL (3.5-10.8)
[2018-09-27 12:12] LABS: Hematocrit 34 % (36-46); Hemoglobin 11.5 g/dL (14.0-18.0); Mean Corpuscular HGB Conc 34 g/dL (31-36); Mean Corpuscular Hemoglobin 29 pg (27-31); Mean Corpuscular Volume 87 fL (80-94); Platelet Count 279 10^3/uL (150-450); Red Blood Count 3.91 10^6 /uL (4.18-5.48); Red Cell Distribution Width 13 % (10.5-15); White Blood Count 8.3 10^3/uL (3.5-10.8)
[2018-09-27] MEDS: LEVODOPA PO SCH ×2 (14:30→20:15)
[2018-09-27] MEDS: CARBIDOPA PO SCH ×2 (14:30→20:15)
--- NOTE | 2018-09-27 17:26 | PN ---
Subjective Date of Service: 09/27/18 Interval History: Patient seen in bed. appeared comfortable. he did have 2 large BRBPR this morning once arrived to the floor. no pain or dizziness. his admission Hct noted to be 12.31 Stat Hct ordered and Hct down to 11.5! ordered repeat CBC at 6 pm. I spoke to patient and family and he is willing to proceed with the colonoscopy. I consulted with GI. Awaiting official full formal recommendations Past Medical History: Unchanged from Admission Objective Active Medications: Acetaminophen (Tylenol Tab*) 650 mg PO Q4H PRN PRN Reason: FEVER/PAIN Carbidopa/Levodopa (Rytary Er 48.75 Mg-195 Mg Cap) 3 cap PO TID [facility] Last Admin: 09/27/18 14:30 Dose: 3 cap Finasteride (Proscar Tab*) 5 mg PO DAILY [facility] Last Admin: 09/27/18 09:43 Dose: 5 mg Fludrocortisone Acetate (Florinef Tab*) 0.1 mg PO DAILY [facility] Last Admin: 09/27/18 09:42 Dose: 0.1 mg Sodium Chloride (Ns 0.9% 1000 Ml) 1,000 mls @ 150 mls/hr IV PER RATE [facility] Last Admin: 09/27/18 04:24 Dose: 150 mls/hr Levothyroxine Sodium (Synthroid Tab*) 175 mcg PO DAILY@0600 [facility] Last Admin: 09/27/18 09:43 Dose: 175 mcg Levothyroxine Sodium (Synthroid Tab*) 50 mcg PO DAILY@0600 [facility] Last Admin: 09/27/18 09:43 Dose: 50 mcg Pantoprazole Sodium (Protonix Tab*) 40 mg PO DAILY [facility] Last Admin: 09/27/18 09:42 Dose: 40 mg Ropinirole HCl (Requip Tab*) 1 mg PO TID [facility] Last Admin: 09/27/18 14:31 Dose: 1 mg Selegiline HCl (Eldepryl Tab*) 5 mg PO QAM [facility] Last Admin: 09/27/18 11:02 Dose: 5 mg Selegiline HCl (Eldepryl Tab*) 5 mg PO 1200 [facility] Last Admin: 09/27/18 14:31 Dose: 5 mg Vital Signs - 8 hr 09/27/18 09/27/18 09/27/18 09:28 09:30 10:10 Temperature 96.4 F 96.4 F Pulse Rate 70 70 Respiratory 18 18 Rate Blood Pressure 140/70 140/70 (mmHg) O2 Sat by Pulse 100 100 97 Oximetry 09/27/18 09/27/18 11:15 15:15 Temperature 97.3 F 97.4 F Pulse Rate 65 63 Respiratory 18 20 Rate Blood Pressure 136/67 143/63 (mmHg) O2 Sat by Pulse 100 99 Oximetry Oxygen Devices in Use Now: Nasal Cannula Appearance: Awake, alert. no distress Eyes: No Scleral Icterus, PERRLA, - - EOMI Ears/Nose/Mouth/Throat: NL Teeth, Lips, Gums, Mucous Membranes Moist, - - parkinsonsim facial features Neck: NL Appearance and Movements; NL JVP, Trachea Midline Respiratory: Symmetrical Chest Expansion and Respiratory Effort, Clear to Auscultation Cardiovascular: NL Sounds; No Murmurs; No JVD, RRR, No Edema Abdominal: NL Sounds; No Tenderness; No Distention Extremities: No Edema, - - fine resting tremors Result Diagrams: 09/27/18 11:56 09/27/18 03:47 Assess/Plan/Problems-Billing Assessment: 88 year old male present back to the hospital for reccurent Lower GI bleed. He was discharged 48 hrs ago after he declined his Colonoscopy prep - Patient Problems (1) CAD (coronary artery disease) Current Visit: No Status: Acute Code(s): I25.10 - ATHSCL HEART DISEASE OF [place] CORONARY ARTERY W/O ANG PCTRS SNOMED Code(s): 24541118 Comment: - hold Aspirin now that he is in GI bleed (2) Hematochezia Current Visit: No Status: Acute Code(s): K92.1 - MELENA SNOMED Code(s): 398903877 Comment: - Suspect diverticular in nature. - He declined to drink his Golytely at his last admissions. Given his reccurent GI bleed today and readmission he agreed for the prep. - Continue to monitor Q6hrs. Will start prep and colonoscopy in am (3) Diabetes Current Visit: No Status: Chronic Code(s): E11.9 - TYPE 2 DIABETES MELLITUS WITHOUT COMPLICATIONS SNOMED Code(s): 09192489 Comment: - will place him on accucheck and sliding scale coverage (4) GERD (gastroesophageal reflux disease) Current Visit: No Status: Chronic Code(s): K21.9 - GASTRO-ESOPHAGEAL REFLUX DISEASE WITHOUT ESOPHAGITIS SNOMED Code(s): 344188236 Comment: - Continue pantoprazole 40 mg daily (5) Parkinson disease Current Visit: No Status: Chronic Code(s): G20 - PARKINSON'S DISEASE SNOMED Code(s): 01263608 Comment: - Continue Carbidopa/levodopa, selegiline and ropinirole. (6) DVT prophylaxis Current Visit: No Status: Acute Code(s): YAV3621 - SNOMED Code(s): 909126461 Comment: - SCD instead of Pharmacological prophylaxis contraindicated in the setting of GI bleed.
[2018-09-27] MEDS ORDERED: Dextrose 50% Syringe 50 ML* 25 GM/50 ML SYRINGE IV PUSH PRN (17:55)
[2018-09-27] MEDS ORDERED: PEG 3000 GI LAVAGE* 1 GALLON PO ONE (17:56)
[2018-09-27] MEDS ORDERED: Bisacodyl EC TAB* 5 MG PO ONE (17:56)
[2018-09-27 19:07] LABS: Hematocrit 33 % (36-46)
[2018-09-27] MEDS: Insulin LISPRO* 1 UNITS UNIT SUBCUT SCH (21:30)
--- NOTE | 2018-09-27 22:34 | CONS ---
GASTROENTEROLOGY CONSULTATION REPORT: DATE OF CONSULT: 09/27/18 CONSULTING PROVIDER: Dr. Reyes. REASON FOR CONSULT: Rectal bleeding. HISTORY OF PRESENT ILLNESS: Mr. Edward is an 88-year-old [place] gentleman with a history of Parkinson disease, coronary artery disease status post stenting, diabetes, hypertension, hyperlipidemia, and hypothyroidism, who is readmitted with rectal bleeding. To review, Mr. Edward began noticing rectal bleeding on Tuesday morning. While walking to the bathroom to deal with the rectal bleeding, he had a fall. Fall was felt to be a mechanical fall as opposed to syncopal episode. Admitted to [facility] for observation on Tuesday. Patient was noted to have a slight downtrend in his hemoglobin. and my recommendation was to start colonoscopy prep. Patient declined the colonoscopy and prep on Tuesday, although there is some question of delirium based on reports of his behavior at the time. Hemoglobin remained stable and bleeding seemed to stop. He was therefore discharged. Mr. Edward reports that he was at home for approximately a day and was doing well. He then developed recurrence of rectal bleeding of a fairly large quantity earlier this morning. He was readmitted. On interview, Mr. Edward states that he feels well. No other symptoms. Denies any abdominal pain. No other falls. Of note, Mr. Edward believes that he last had a colonoscopy around age 70. He is not sure if a polyp was removed at this time. He does recall being told he had hemorrhoids. PAST MEDICAL HISTORY: 1. Parkinson disease. 2. Cardiac disease, status post stenting (no recent stents). 3. Diabetes. 4. Hypothyroidism. 5. Hyperlipidemia. 6. Hypertension. 7. Constipation. 8. BPH. 9. Cataracts. PAST SURGICAL HISTORY: 1. TURP x3. 2. Right cataract surgery. MEDICATIONS: 1. Aspirin 81 mg daily. 2. Proscar 5 mg daily. 3. Levothyroxine daily. 4. Metformin 500 mg daily. 5. Omeprazole 20 mg daily. 6. Ropinirole 1 mg t.i.d. 7. Rytary. 8. Selegiline 5 mg daily in the morning and at 12 p.m. 9. MiraLAX. 10. Meclizine p.r.n. ALLERGIES: Patient is allergic to STATINS. FAMILY HISTORY: No known GI or liver disease. SOCIAL HISTORY: No recent alcohol use or drug use. Former smoker. The patient is from [facility]. REVIEW OF SYSTEMS: Complete review of systems reviewed and negative except as mentioned above. PHYSICAL EXAMINATION: Vital Signs: Temperature 97.4, heart rate 66, blood pressure 153/69, 97% on room air. General: Very pleasant elderly gentleman, in no acute distress. HEENT: Mucous membranes are moist. Sclerae anicteric. Cardiovascular: Regular rate and rhythm. Pulm: Lungs clear to auscultation. Abdomen: Soft, nontender, nondistended. Positive bowel sounds. Skin: No jaundice. Neuro: A and O x3. DIAGNOSTIC STUDIES/LAB DATA: White count is 8.3, hemoglobin 11 which is down from 13 at the time of discharge. His hemoglobin was 14.1 on 09/24/18. Platelet count is normal. INR is 1.04. BUN is 17, creatinine is 1.39. Imaging: None recent. IMPRESSION AND RECOMMENDATION: Mr. Edward is an 88-year-old gentleman with a history of coronary artery disease status post stenting and maintained on aspirin, Parkinson disease, diabetes, hypertension, hyperlipidemia, and hypothyroidism, who is re-admitted with rectal bleeding and anemia. Mr. Edward was admitted over the weekend with rectal bleeding and a mechanical fall. He declined colonoscopy and was discharged after a period of hemoglobin stability and absence of ongoing bleeding. After approximately a day at home, he developed recurrent bleeding. Overall, his hemoglobin is down 3 grams from baseline. The bleeding does not appear to be heavy at present nor is he hemodynamically unstable. However, I think it is reasonable to consider colonoscopy given the ongoing bleeding as well as the associated hemoglobin drop. I favor a diagnosis of diverticular bleeding. Differential also includes arteriovenous malformation and a large mass or polyp. Upper gastrointestinal bleeding unlikely given clinical presentation. Mr. Edward confirms that he is willing to proceed with colonoscopy during this admission. He asked appropriate questions regarding the preparation. 1. Clear diet today. NPO after midnight. 2. Please give bisacodyl 20 mg p.o. now followed by GoLYTELY 4 L. 3. Continue to monitor CBC. 4. Tentatively plan for colonoscopy tomorrow assuming the patient is able to complete the prep and remains willing to have this procedure. Thank you very much for this consult. Please contact GI with any clinical change or questions. [id number]/[facility] #: [id number] [facility]
[2018-09-28 00:37] LABS: Hematocrit 32 % (36-46); Hemoglobin 11.2 g/dL (14.0-18.0)
[2018-09-28] MEDS: Levothyroxine TAB* 50 MCG TAB PO SCH (06:08)
[2018-09-28] MEDS: Levothyroxine TAB* 175 MCG TAB PO SCH (06:08)
[2018-09-28 06:11] LABS: ABS Basophils 0 10^3/ul (0-0.2); ABS Eosinophils 0.3 10^3/ul (0-0.6); ABS Lymphocytes 1.5 10^3/ul (1.0-4.8); ABS Monocytes 0.7 10^3/ul (0-0.8); ABS Neutrophils 5.4 10^3/ul (1.5-7.7); ABS Nucleated RBC 0 10^3/ul; Eosinophil % 3.6 %; Hematocrit 33 % (36-46); Hemoglobin 11.2 g/dL (14.0-18.0); Lymphocyte % 18.5 %; Mean Corpuscular HGB Conc 34 g/dL (31-36); Mean Corpuscular Hemoglobin 30 pg (27-31); Mean Corpuscular Volume 88 fL (80-94); Nucleated Red Blood Cells % 0; Platelet Count 274 10^3/uL (150-450); Red Blood Count 3.77 10^6 /uL (4.18-5.48); Red Cell Distribution Width 14 % (10.5-15); White Blood Count 7.9 10^3/uL (3.5-10.8)
[2018-09-28 06:20] LABS: BUN/Creatinine Ratio 11.8 (8-20); Calcium 8.3 mg/dL (8.6-10.3); EGFR African American 83.4 (>60); EGFR Non-African American 68.9 (>60); Magnesium 1.9 mg/dL (1.9-2.7); Phosphorus 2.9 mg/dL (2.5-5.0)
[2018-09-28] MEDS: NS 0.9% 1000 ML** 1,000 ML IV SCH ×2 (07:40→18:14)
[2018-09-28] MEDS: Insulin LISPRO* 1 UNITS UNIT SUBCUT SCH ×4 (08:34→22:12)
[2018-09-28] MEDS ORDERED: Magnesium CITRATE* 300 ML BTL PO ONE (08:53)
[2018-09-28] MEDS: Selegiline TAB* 5 MG PO SCH ×2 (09:38→13:25)
[2018-09-28] MEDS: Fludrocortisone Acetate TAB* 0.1 MG PO SCH (09:38)
[2018-09-28] MEDS: Pantoprazole TAB * 40 MG TAB PO SCH (09:39)
[2018-09-28] MEDS: Finasteride TAB* 5 MG PO SCH (09:39)
[2018-09-28] MEDS: rOPINIRole TAB* 1 MG PO SCH ×3 (09:39→22:17)
[2018-09-28] MEDS: CARBIDOPA PO SCH ×3 (09:39→22:17)
[2018-09-28] MEDS: LEVODOPA PO SCH ×3 (09:39→22:17)
--- NOTE | 2018-09-28 15:07 | PN ---
Subjective Date of Service: 09/28/18 Interval History: Patient seen, doing well no acute events. denies any rectal bleed. He is still drinking the bowel prep but his stool has not cleared yet. awaiting to see if GI will take him without complete prep. Unlikely. Procedure is on hold pending his stool consistency Past Medical History: Unchanged from Admission Objective Active Medications: Acetaminophen (Tylenol Tab*) 650 mg PO Q4H PRN PRN Reason: FEVER/PAIN Carbidopa/Levodopa (Rytary Er 48.75 Mg-195 Mg Cap) 3 cap PO TID [facility] Last Admin: 09/28/18 13:25 Dose: 3 cap Dextrose (D50w Syringe 50 Ml*) 12.5 gm IV PUSH .FOR FS < 60 - SS PRN PRN Reason: FS < 60 Finasteride (Proscar Tab*) 5 mg PO DAILY [facility] Last Admin: 09/28/18 09:39 Dose: 5 mg Fludrocortisone Acetate (Florinef Tab*) 0.1 mg PO DAILY [facility] Last Admin: 09/28/18 09:38 Dose: 0.1 mg Sodium Chloride (Ns 0.9% 1000 Ml) 1,000 mls @ 150 mls/hr IV PER RATE [facility] Last Admin: 09/28/18 07:40 Dose: 150 mls/hr Insulin Human Lispro (Humalog*) 0 units [facility]; Protocol Last Admin: 09/28/18 13:26 Dose: 2 units Levothyroxine Sodium (Synthroid Tab*) 175 mcg PO DAILY@0600 [facility] Last Admin: 09/28/18 06:08 Dose: 175 mcg Levothyroxine Sodium (Synthroid Tab*) 50 mcg PO DAILY@0600 [facility] Last Admin: 09/28/18 06:08 Dose: 50 mcg Pantoprazole Sodium (Protonix Tab*) 40 mg PO DAILY [facility] Last Admin: 09/28/18 09:39 Dose: 40 mg Ropinirole HCl (Requip Tab*) 1 mg PO TID [facility] Last Admin: 09/28/18 13:24 Dose: 1 mg Selegiline HCl (Eldepryl Tab*) 5 mg PO QAM [facility] Last Admin: 09/28/18 09:38 Dose: 5 mg Selegiline HCl (Eldepryl Tab*) 5 mg PO 1200 [facility] Last Admin: 09/28/18 13:25 Dose: 5 mg Vital Signs - 8 hr 09/28/18 09/28/18 08:02 08:04 Temperature 97.5 F Pulse Rate 67 Respiratory 18 18 Rate Blood Pressure 167/73 (mmHg) O2 Sat by Pulse 100 Oximetry Oxygen Devices in Use Now: Nasal Cannula Appearance: Awake, alert. no acute distress Eyes: No Scleral Icterus, - - EOMI Ears/Nose/Mouth/Throat: NL Teeth, Lips, Gums, Mucous Membranes Moist Neck: NL Appearance and Movements; NL JVP, Trachea Midline Respiratory: Symmetrical Chest Expansion and Respiratory Effort, Clear to Auscultation Cardiovascular: NL Sounds; No Murmurs; No JVD, No Edema Abdominal: NL Sounds; No Tenderness; No Distention Result Diagrams: 09/28/18 05:55 09/28/18 05:55 Assess/Plan/Problems-Billing Assessment: 88 year old male present back to the hospital for reccurent Lower GI bleed. He was discharged 48 hrs ago after he declined his Colonoscopy prep - Patient Problems (1) CAD (coronary artery disease) Current Visit: No Status: Acute Code(s): I25.10 - ATHSCL HEART DISEASE OF [place] CORONARY ARTERY W/O ANG PCTRS SNOMED Code(s): 10091647 Comment: - hold Aspirin now that he is in GI bleed (2) Hematochezia Current Visit: No Status: Acute Code(s): K92.1 - MELENA SNOMED Code(s): 145075527 Comment: - Suspect diverticular in nature. - He declined to drink his Golytely at his last admissions. Given his reccurent GI bleed today and readmission he agreed for the prep. - H/H plateauted. still taking his prep and colonoscopy today on hold until his stool clears (3) Diabetes Current Visit: No Status: Chronic Code(s): E11.9 - TYPE 2 DIABETES MELLITUS WITHOUT COMPLICATIONS SNOMED Code(s): 02592995 Comment: - on accucheck and sliding scale coverage (4) GERD (gastroesophageal reflux disease) Current Visit: No Status: Chronic Code(s): K21.9 - GASTRO-ESOPHAGEAL REFLUX DISEASE WITHOUT ESOPHAGITIS SNOMED Code(s): 618681271 Comment: - Continue pantoprazole 40 mg daily (5) Parkinson disease Current Visit: No Status: Chronic Code(s): G20 - PARKINSON'S DISEASE SNOMED Code(s): 57603318 Comment: - Continue Carbidopa/levodopa, selegiline and ropinirole. (6) DVT prophylaxis Current Visit: No Status: Acute Code(s): BWD8483 - SNOMED Code(s): 795778108 Comment: - SCD instead of Pharmacological prophylaxis contraindicated in the setting of GI bleed.
[2018-09-28] MEDS ORDERED: Midazolam* 1 MG/ML 10 ML VIAL (10 MG) ONE (15:26)
[2018-09-28] MEDS ORDERED: fentaNYL* 50 MCG/ML 2 ML VIAL (100 MCG VIAL) ONE (15:26)
[2018-09-28] MEDS ORDERED: PEG 3000 GI LAVAGE* 1 GALLON PO ONE (16:56)
--- NOTE | 2018-09-28 16:58 | PN ---
Progress Note - Progress Note Date of Service: 09/28/18 Note: GI Brief Flex Sig attempted colon note Findings: Very poor prep, full of stool after 4L golyte and mag cit. Able to get to mid/ prox sigmoid but views poor. Reprep and try 09/29 Ordered 4L Golyte. Reggie Younger DO 09/28/18 1500
--- NOTE | 2018-09-28 23:36 | PRO ---
CC: Paul Blair MD * FLEXIBLE SIGMOIDOSCOPY REPORT: DATE OF PROCEDURE: 09/28/18 PRIMARY CARE PHYSICIAN: Paul Blair MD INDICATION FOR PROCEDURE: Rectal bleeding. PROCEDURE PERFORMED: Flexible sigmoidoscopy. MEDICATIONS GIVEN: Include 2 mg IV midazolam, 25 mcg IV fentanyl. DESCRIPTION OF PROCEDURE: After the colonoscopy and flexible sigmoidoscopy procedure including the risks, benefits, and alternatives with the risks not limited to perforation, surgery, missed lesions and/or were explained to the patient, written informed consent was obtained, IV medication was given, and a rectal exam was performed. Rectal exam was unremarkable. The adult Olympus colonoscope was then inserted into the patient's rectum. Immediately, there was poor prep. Given that there was concern for bleeding, I tried to move past this as much as possible. I was able to get to approximately the proximal sigmoid before further advancement would have been detrimental and dangerous. The decision was then made to abort the flexible sigmoidoscopy instead of colonoscopy. No large lesions were identified, but the views were very limited by the poor prep with solid stool and liquid stool throughout. The scope was then removed from the patient. He tolerated procedure well. He returned to the recovery room in stable condition. IMPRESSION: 1. Flexible sigmoidoscopy, proximal colon. 2. Poor prep. 3. No fresh or old blood. RECOMMENDATIONS: We will give another 4 L GoLYTELY tonight and then re-prep. He states he only moves his bowels once a week. This, combined with the Parkinson's, will present a challenging preparation situation, but we will attempt further preparation as it seems to be starting to move well at this point. [id number]/[facility] #: [id number] [facility]
[2018-09-28] MEDS ORDERED: Lactated Ringers 1000 ML Bag* 1,000 ML IV SCH (23:45)
[2018-09-29 00:06] LABS: Hematocrit 33 % (36-46); Mean Corpuscular HGB Conc 34 g/dL (31-36); Mean Corpuscular Hemoglobin 30 pg (27-31); Mean Corpuscular Volume 89 fL (80-94); Mean Platelet Volume 9.4 fL (7.4-10.4); Platelet Count 328 10^3/uL (150-450); Red Blood Count 3.72 10^6 /uL (4.18-5.48); Red Cell Distribution Width 14 % (10.5-15); White Blood Count 9.1 10^3/uL (3.5-10.8)
--- NOTE | 2018-09-29 00:39 | PN ---
Hospitalist Progress Note Cross Coverage Note Called to eval patient after large bloody BM with clots and subsequent low SBP to 90s while seated, 80s while standing. Heart rate during this time was low 60s, slightly below patient's baseline. RN noted patient to appear pale at this time. Pt seen at bedside and denies symptoms. Repeat vitals by RN note SBP improving to 120s. No pallor noted. Pt making inappropriate comments - at baseline. Cap refill < 2 seconds. Likely that this was vasovagal event or post-defecation pre-syncope. Before first presentation to [facility] for GI bleed, pt had similar episode where he noted a large bloody BM and subsequently fainted. If patient was having massive GI bleed, would expect tachycardia, and would not expect his color or SBP to rebound quickly. However his HR decreased (he is not on a beta chloe), which is more typical for neurocardiac pre/syncope, as is return of normal SBP. CBC checked and is at baseline. Will check again at 3AM and 6AM in case of equilibration. Will give 1 L IVF.
[2018-09-29 02:53] LABS: Hematocrit 26 % (36-46); Hemoglobin 8.9 g/dL (14.0-18.0); Mean Corpuscular HGB Conc 34 g/dL (31-36); Mean Corpuscular Hemoglobin 30 pg (27-31); Mean Corpuscular Volume 88 fL (80-94); Mean Platelet Volume 9.2 fL (7.4-10.4); Platelet Count 283 10^3/uL (150-450); Red Blood Count 2.98 10^6 /uL (4.18-5.48); Red Cell Distribution Width 14 % (10.5-15); White Blood Count 8.7 10^3/uL (3.5-10.8)
[2018-09-29] MEDS: NS 0.9% 1000 ML** 1,000 ML IV SCH ×3 (03:24→21:09)
[2018-09-29] MEDS ORDERED: NS 0.9% 1000 ML** 2,000 ML IV ONE ×2 (06:29→06:34)
[2018-09-29] MEDS: Levothyroxine TAB* 175 MCG TAB PO SCH (08:04)
[2018-09-29] MEDS: Levothyroxine TAB* 50 MCG TAB PO SCH (08:04)
[2018-09-29] MEDS: Pantoprazole TAB * 40 MG TAB PO SCH (08:05)
[2018-09-29] MEDS: Fludrocortisone Acetate TAB* 0.1 MG PO SCH (08:05)
[2018-09-29] MEDS: rOPINIRole TAB* 1 MG PO SCH (08:05)
[2018-09-29] MEDS: CARBIDOPA PO SCH ×3 (08:05→22:07)
[2018-09-29] MEDS: Finasteride TAB* 5 MG PO SCH (08:05)
[2018-09-29] MEDS: Selegiline TAB* 5 MG PO SCH ×2 (08:05→12:01)
[2018-09-29] MEDS: LEVODOPA PO SCH ×3 (08:05→22:07)
[2018-09-29] MEDS ORDERED: Haloperidol INJ IV/IM* 5 MG/ML AMP IV SLOW PU PRN ×2 (08:10→15:20)
[2018-09-29] MEDS ORDERED: Haloperidol INJ IV/IM* 5 MG/ML AMP ONE (08:13)
[2018-09-29 09:42] LABS: ABS Basophils 0 10^3/ul (0-0.2); ABS Eosinophils 0 10^3/ul (0-0.6); ABS Lymphocytes 0.9 10^3/ul (1.0-4.8); ABS Monocytes 0.6 10^3/ul (0-0.8); ABS Neutrophils 8.6 10^3/ul (1.5-7.7); ABS Nucleated RBC 0 10^3/ul; Eosinophil % 0.2 %; Hematocrit 32 % (36-46); Hemoglobin 10.4 g/dL (14.0-18.0); Lymphocyte % 8.6 %; Mean Corpuscular HGB Conc 33 g/dL (31-36); Mean Corpuscular Hemoglobin 29 pg (27-31); Mean Corpuscular Volume 89 fL (80-94); Mean Platelet Volume 9.5 fL (7.4-10.4); Nucleated Red Blood Cells % 0.1; Platelet Count 263 10^3/uL (150-450); Red Blood Count 3.57 10^6 /uL (4.18-5.48); Red Cell Distribution Width 14 % (10.5-15); White Blood Count 10.1 10^3/uL (3.5-10.8)
--- NOTE | 2018-09-29 10:54 | PN ---
Date of Service: 09/29/18 - [facility] note Critical Care Services: Pt seen and examined at bedside. Overnight events noted. Pt was transferred to ICU after acute episode of lower GI bleed and hypotension. received 2 units pRBC and receiving IVF. Active Medications Generic Name Dose Route Start Last Admin Trade Name Freq PRN Reason Stop Dose Admin Acetaminophen 650 mg 09/27/18 06:15 Tylenol Tab* PO Q4H PRN FEVER/PAIN Carbidopa/Levodopa 3 cap 09/27/18 14:00 09/29/18 08:05 Rytary Er 48.75 Mg-195 Mg Cap PO Not Given TID BERTHA Dextrose 12.5 gm 09/27/18 17:55 D50w Syringe 50 Ml* IV PUSH .FOR FS < 60 - SS PRN FS < 60 Finasteride 5 mg 09/27/18 09:00 09/29/18 08:05 Proscar Tab* PO Not Given DAILY BERTHA Fludrocortisone Acetate 0.1 mg 09/27/18 09:00 09/29/18 08:05 Florinef Tab* PO Not Given DAILY [facility] Haloperidol Lactate 2 mg 09/29/18 08:10 09/29/18 08:14 Haldol Inj Iv/Im* IV SLOW PU 2 mg Q6H PRN Administration AGITATION Sodium Chloride 1,000 mls @ 150 mls/hr 09/27/18 03:45 09/29/18 03:24 Ns 0.9% 1000 Ml IV 150 mls/hr PER RATE BERTHA Administration Insulin Human Lispro 0 units 09/27/18 21:00 09/28/18 22:12 Humalog* SUBCUT Not Given ACHS [facility] Protocol Levothyroxine Sodium 175 mcg 09/27/18 06:45 09/29/18 08:04 Synthroid Tab* PO Not Given DAILY@0600 [facility] Levothyroxine Sodium 50 mcg 09/27/18 06:45 09/29/18 08:04 Synthroid Tab* PO Not Given DAILY@0600 [facility] Pantoprazole Sodium 40 mg 09/27/18 09:00 09/29/18 08:05 Protonix Tab* PO Not Given DAILY [facility] Selegiline HCl 5 mg 09/27/18 09:00 09/29/18 08:05 Eldepryl Tab* PO Not Given QAM [facility] Selegiline HCl 5 mg 09/27/18 12:00 09/28/18 13:25 Eldepryl Tab* PO 5 mg 1200 BERTHA Administration Vital Signs: Temp Pulse Resp BP SpO2 FiO2 99.3 F 91 26 121/55 99 09/29/18 09:03 09/29/18 09:22 09/29/18 09:32 09/29/18 09:22 09/29/18 09:22 Physical Exam: Gen: Pt is alert, confused, combative at times HEENT: PERRLA, no JVD Lungs: Clear to auscultation b/l Cardiac: S1, S2+ Abdomen: Soft, BS+ Extremities: Normal ROM Neuro: Confused, combative Fluid Balance (Past 24 Hours): I= 2979 O= 1025 Net 1953 Intake & Output 09/27/18 09/28/18 09/29/18 09/30/18 06:59 06:59 06:59 06:59 Intake Total 4972 2979 3394 Output Total 775 1025 Balance 4197 1954 3394 Weight 280 lb 280 lb Intake: IV Fluids 1162 2499 2787 LR 999 NS (0.9%) 1162 1500 2787 Oral 3810 480 Packed Cells 607 Output: Urine 775 1025 Other: Estimated Void Large # Bowel Movements 0 3 Estimated Stool Amount Small Large # Voids 1 Labs: Laboratory Results - last 24 hr 09/28/18 09/28/18 09/28/18 11:42 18:20 22:10 WBC RBC Hgb Hct MCV MCH MCHC RDW Plt Count MPV Neut % (Auto) Lymph % (Auto) [place] % (Auto) Eos % (Auto) Baso % (Auto) Absolute Neuts (auto) Absolute Lymphs (auto) Absolute Monos (auto) Absolute Eos (auto) Absolute Basos (auto) Absolute Nucleated RBC Nucleated RBC % Sodium Potassium Chloride Carbon Dioxide Anion Gap BUN Creatinine Est GFR ( Amer) Est GFR (Non-Af Amer) BUN/Creatinine Ratio Glucose POC Glucose (mg/dL) 144 H 113 H 130 H Calcium Phosphorus Magnesium Blood Type Antibody Screen Crossmatch Transfusion React Rpt Donor Unit # Post-Trans Blood Type Post-Trans ONDINA 09/28/18 09/28/18 09/29/18 23:31 23:31 02:46 WBC 9.1 8.7 RBC 3.72 L 2.98 L Hgb 11.0 L 8.9 L Hct 33 L 26 L MCV 89 88 MCH 30 30 MCHC 34 34 RDW 14 14 Plt Count 328 283 MPV 9.4 9.2 Neut % (Auto) Lymph % (Auto) [place] % (Auto) Eos % (Auto) Baso % (Auto) Absolute Neuts (auto) Absolute Lymphs (auto) Absolute Monos (auto) Absolute Eos (auto) Absolute Basos (auto) Absolute Nucleated RBC Nucleated RBC % Sodium Potassium Chloride Carbon Dioxide Anion Gap BUN Creatinine Est GFR ( Amer) Est GFR (Non-Af Amer) BUN/Creatinine Ratio Glucose POC Glucose (mg/dL) Calcium Phosphorus Magnesium Blood Type A Positive Antibody Screen Negative Crossmatch See Detail Transfusion React Rpt Donor Unit # Post-Trans Blood Type Post-Trans ONDINA 09/29/18 09/29/18 09/29/18 09:20 09:20 09:20 WBC 10.1 RBC 3.57 L Hgb 10.4 L Hct 32 L MCV 89 MCH 29 MCHC 33 RDW 14 Plt Count 263 MPV 9.5 Neut % (Auto) 84.9 Lymph % (Auto) 8.6 [place] % (Auto) 6.1 Eos % (Auto) 0.2 Baso % (Auto) 0.2 Absolute Neuts (auto) 8.6 H Absolute Lymphs (auto) 0.9 L Absolute Monos (auto) 0.6 Absolute Eos (auto) 0 Absolute Basos (auto) 0 Absolute Nucleated RBC 0 Nucleated RBC % 0.1 Sodium TNP Potassium TNP Chloride TNP Carbon Dioxide TNP Anion Gap TNP BUN TNP Creatinine TNP Est GFR ( Amer) TNP Est GFR (Non-Af Amer) TNP BUN/Creatinine Ratio TNP Glucose TNP POC Glucose (mg/dL) Calcium TNP Phosphorus TNP Magnesium TNP Blood Type Antibody Screen Crossmatch Transfusion React Rpt Donor Unit # [id number] Post-Trans Blood Type A Positive Post-Trans ONDINA Negative Nutrition: NPO given GI bleed Impression: 88 year old male with Parkinsons, dementia, GERD, CAD s/p stent to LAD, HTN, DM , hypothyroidism admitted 09/27 for reccurent Lower GI bleed. He was discharged 48 hrs ago after he declined his Colonoscopy prep. Sigmoidoscopy was unsuccessful. Had GI bleed again last night on floor and was transferred to ICU. Acute lower GI bleed Hypotension sec to hemorrhagic shock Blood loss anemia Agitation/Dementia Plan: 1.GI bleed: Pt received 2 units pRBC. Received fluid bolus. Has 2 peripheral IVs. c/w IV fluids at 150cc/hr. Contacted GI, possible endoscopy. c/w PPI. Monitor h&H closely, q 6hrs. BP improved after transfusion and fluid bolus. 2.Agitation/confusion: Pt with h/o Parkinsons and dementia. Haldol prn for agitation. Keep hHOB leevated at 30 degrees. Aspiration precautions. c/w meds for Parkinsons. Close monitoring and restraints if concern for safety for self 3. Hypothyroidism: c/w levothyroxine 4. DM: Bl sugars well controlled, will monitor closely. 5. CAD s/p stent: Stable, ASA on hold 6. DVT px: SCD`s Full code Critical Care Time:30 min
[2018-09-29] MEDS: Insulin LISPRO* 1 UNITS UNIT SUBCUT SCH ×4 (11:27→22:11)
[2018-09-29 11:41] LABS: BUN/Creatinine Ratio 10.2 (8-20); Calcium 7.4 mg/dL (8.6-10.3); EGFR African American 64.2 (>60); Magnesium 1.8 mg/dL (1.9-2.7); Phosphorus 2.4 mg/dL (2.5-5.0); Potassium 4.1 mmol/L (3.5-5.0)
[2018-09-29] MEDS ORDERED: Haloperidol INJ IV/IM* 5 MG/ML AMP IV SLOW PU ONE (12:18)
[2018-09-29 13:53] LABS: Hematocrit 26 % (36-46); Mean Corpuscular HGB Conc 34 g/dL (31-36); Mean Corpuscular Hemoglobin 30 pg (27-31); Mean Corpuscular Volume 87 fL (80-94); Mean Platelet Volume 9.5 fL (7.4-10.4); Platelet Count 269 10^3/uL (150-450); Red Blood Count 3.02 10^6 /uL (4.18-5.48); Red Cell Distribution Width 13 % (10.5-15); White Blood Count 9.9 10^3/uL (3.5-10.8)
[2018-09-29 16:18] LABS: Hematocrit 26 % (36-46); Hemoglobin 8.8 g/dL (14.0-18.0)
[2018-09-29] MEDS: Pantoprazole IV* 40 MG IV SCH (16:23)
[2018-09-29] MEDS ORDERED: Midazolam* 1 MG/ML 10 ML VIAL (10 MG) ONE (16:34)
[2018-09-29] MEDS ORDERED: fentaNYL* 50 MCG/ML 2 ML VIAL (100 MCG VIAL) ONE (16:34)
[2018-09-29 20:22] LABS: Hematocrit 27 % (36-46)
[2018-09-30 01:02] LABS: Hematocrit 26 % (36-46); Hemoglobin 8.7 g/dL (14.0-18.0)
--- NOTE | 2018-09-30 02:17 | PRO ---
DATE OF PROCEDURE: 09/27/18 REFERRING PHYSICIAN: Paul Blair PROCEDURE: Flexible sigmoidoscopy with clipping of rectal ulcer. INDICATION: This 88-year-old man has been in and out of the hospital with 2 admissions over the last 5 days. His hemoglobin fell from 14 initially during the first admission down to 8.9. He has been transfused. He has not had any bright red rectal bleeding over the last 10 hours, but had profuse bleeding overnight. There was conflicting information as to the amount of Colyte he may have taken. He has a history of chronic constipation and the question of a stercoral ulcer is raised versus a distal diverticular bleed. Informed consent was obtained from the patient's daughter (Fatimah Leung, ). Endoscopist - Francisco Moreno: versed and fentanyl Findings - he is in the ICU bed 12 sedated with Haldol. The patient was positioned left side down and moderate sedation extended induced with Haldol earlier in the day and then with this procedure, under my direction, midazolam 1 mg and fentanyl 25 mcg. Digital rectal disclosed fresh clots and old clots, mucosa was smooth. Initial views with carbon dioxide insufflation showed an ulcer in the mid rectum at about 8 cm with an adherent clot. It was approached with a clip from below and a good grasp obtained. This took quite a bit of time after evacuating clots and making space for viewing. Another clip was then applied from a retroflexed position at 180-degree orientation from the first approach. The second clip did not retain and slipped off, so a third clip in exactly the same orientation, but gripping a little deeper was applied and this one held. There was no bleeding induced. The area was observed for 10 minutes and there was no further bleeding. A brief view up to about 50 cm showed the material coming from above was very dark brown and olive. It appeared not consistent with fresh bleeding, but a reflux of blood that was progressively as one ascended diluted by down-coming stool. IMPRESSION: 1. Severe chronic constipation. 2. Rectal ulcer - unclear if stercoral versus solitary rectal ulcer from patient digitizing - clipped and hopefully stopped. [id number]/[facility] #: [id number] [facility]
[2018-09-30] MEDS: NS 0.9% 1000 ML** 1,000 ML IV SCH ×3 (04:05→18:02)
[2018-09-30 04:36] LABS: Hematocrit 24 % (36-46); Hemoglobin 8.3 g/dL (14.0-18.0)
[2018-09-30] MEDS: Levothyroxine TAB* 50 MCG TAB PO SCH (06:02)
[2018-09-30] MEDS: Levothyroxine TAB* 175 MCG TAB PO SCH (06:02)
[2018-09-30] MEDS: Pantoprazole IV* 40 MG IV SCH (08:38)
[2018-09-30] MEDS: Fludrocortisone Acetate TAB* 0.1 MG PO SCH (08:38)
[2018-09-30] MEDS: Finasteride TAB* 5 MG PO SCH (08:38)
[2018-09-30] MEDS: Selegiline TAB* 5 MG PO SCH ×2 (08:39→11:49)
[2018-09-30] MEDS: Insulin LISPRO* 1 UNITS UNIT SUBCUT SCH ×4 (09:02→21:18)
--- NOTE | 2018-09-30 09:40 | PN ---
Progress Note - Progress Note Date of Service: 09/30/18 - Transfer note Note: Pt seen and examined at bedside. No acute events o/n. Pt less combative. Had colonoscopy last night and was noted to have rectal ulcer which was clipped. No further bleeding. Hemodynamically stable Active Medications Generic Name Dose Route Start Last Admin Trade Name Freq PRN Reason Stop Dose Admin Acetaminophen 650 mg 09/27/18 06:15 Tylenol Tab* PO Q4H PRN FEVER/PAIN Carbidopa/Levodopa 3 cap 09/27/18 14:00 09/29/18 22:07 Rytary Er 48.75 Mg-195 Mg Cap PO Not Given TID BERTHA Dextrose 12.5 gm 09/27/18 17:55 D50w Syringe 50 Ml* IV PUSH .FOR FS < 60 - SS PRN FS < 60 Finasteride 5 mg 09/27/18 09:00 09/30/18 08:38 Proscar Tab* PO 5 mg DAILY BERTHA Administration Sodium Chloride 1,000 mls @ 150 mls/hr 09/27/18 03:45 09/30/18 04:05 Ns 0.9% 1000 Ml IV 150 mls/hr PER RATE BERTHA Administration Magnesium Sulfate/Dextrose 1 gm in 100 mls @ 200 mls/hr 09/30/18 09:25 Magnesium Sulfate 1 Gm Iv* IV 09/30/18 09:54 ONCE ONE Insulin Human Lispro 0 units 09/27/18 21:00 09/30/18 09:02 Humalog* SUBCUT 3 units ACHS BERTHA Administration Protocol Levothyroxine Sodium 175 mcg 09/27/18 06:45 09/30/18 06:02 Synthroid Tab* PO Not Given DAILY@0600 BERTHA Levothyroxine Sodium 50 mcg 09/27/18 06:45 09/30/18 06:02 Synthroid Tab* PO Not Given DAILY@0600 [facility] Pantoprazole Sodium 40 mg 09/29/18 16:00 09/30/18 08:38 Protonix Iv* IV 40 mg DAILY BERTHA Administration Selegiline HCl 5 mg 09/27/18 09:00 09/30/18 08:39 Eldepryl Tab* PO 5 mg QAM BERTHA Administration Selegiline HCl 5 mg 09/27/18 12:00 09/29/18 12:01 Eldepryl Tab* PO Not Given 1200 BERTHA Vital Signs Temp Pulse Resp BP Pulse Ox 97.0 F 65 18 166/82 99 09/30/18 07:53 09/30/18 06:18 09/30/18 06:23 09/30/18 06:18 09/30/18 06:18 O/E: Pt in NAD HEENT; PERRLA, no JVD Lungs: Good a/e b/l, clear to auscultation b/l CVS: S1, S2+, regular Abd: Soft, BS+ Ext: Normal ROM Skin: No rash Neuro: No focal deficits Laboratory Results - last 24 hr 09/29/18 09/29/18 09/29/18 09:20 09:20 11:10 WBC RBC Hgb Hct MCV MCH MCHC RDW Plt Count MPV Sodium TNP 142 Potassium TNP 4.1 Chloride TNP 111 Carbon Dioxide TNP 24 Anion Gap TNP 7 BUN TNP 13 Creatinine TNP 1.28 H Est GFR ( Amer) TNP 64.2 Est GFR (Non-Af Amer) TNP 53.0 BUN/Creatinine Ratio TNP 10.2 Glucose TNP 150 H POC Glucose (mg/dL) Calcium TNP 7.4 L Phosphorus TNP 2.4 L Magnesium TNP 1.8 L Transfusion React Rpt Donor Unit # [id number] Post-Trans Blood Type A Positive Post-Trans ONDINA Negative Reaction Interpretation 09/29/18 09/29/18 09/29/18 11:15 16:13 16:29 WBC 9.9 RBC 3.02 L Hgb 9.0 L 8.8 L Hct 26 L 26 L MCV 87 MCH 30 MCHC 34 RDW 13 Plt Count 269 MPV 9.5 Sodium Potassium Chloride Carbon Dioxide Anion Gap BUN Creatinine Est GFR ( Amer) Est GFR (Non-Af Amer) BUN/Creatinine Ratio Glucose POC Glucose (mg/dL) 124 H Calcium Phosphorus Magnesium Transfusion React Rpt Donor Unit # Post-Trans Blood Type Post-Trans ONDINA Reaction Interpretation 09/29/18 09/29/18 09/30/18 20:12 22:06 00:55 WBC RBC Hgb 9.0 L 8.7 L Hct 27 L 26 L MCV MCH MCHC RDW Plt Count MPV Sodium Potassium Chloride Carbon Dioxide Anion Gap BUN Creatinine Est GFR ( Amer) Est GFR (Non-Af Amer) BUN/Creatinine Ratio Glucose POC Glucose (mg/dL) 148 H Calcium Phosphorus Magnesium Transfusion React Rpt Donor Unit # Post-Trans Blood Type Post-Trans ONDINA Reaction Interpretation 09/30/18 09/30/18 04:29 08:37 WBC RBC Hgb 8.3 L Hct 24 L MCV MCH MCHC RDW Plt Count MPV Sodium Potassium Chloride Carbon Dioxide Anion Gap BUN Creatinine Est GFR ( Amer) Est GFR (Non-Af Amer) BUN/Creatinine Ratio Glucose POC Glucose (mg/dL) 158 H Calcium Phosphorus Magnesium Transfusion React Rpt Donor Unit # Post-Trans Blood Type Post-Trans ONDINA Reaction Interpretation A/P: 88 year old male with Parkinsons, dementia, GERD, CAD s/p stent to LAD, HTN , DM, hypothyroidism admitted 09/27 for reccurent Lower GI bleed. He was discharged 48 hrs ago after he declined his Colonoscopy prep. Sigmoidoscopy was unsuccessful. Had GI bleed again last night on floor and was transferred to ICU. Pt had sigmoidoscopy at bedside last night. Acute lower GI bleed Hypotension sec to hemorrhagic shock Blood loss anemia Agitation/Dementia Parkinsons DM CAD s/p stent Hypothyroidism Plan: 1.GI bleed: Stable after fluid resuscitation and 2 units pRBC. Had rectal ulcer that was clipped. No further bleeding. Will change PPI to Po. Will start clear liquid diet and advance as tolerated. Management of constipation. Monitor h&H daily. 2. Hypertension: No prior dx. Likely from fluid boluses and pRBC. Stable. Not on meds at home, would monitor and start antihypertensives if continues to be elevated. Pt on fludrocortisone from home, unclear reason. Will hold for now, to be restarted when BP is lower. 2.Agitation/confusion: Pt with h/o Parkinsons and dementia. Haldol prn for agitation. c/w meds for Parkinsons. Ropinorole was held due to interaction with Haldol, to be restarted. Fall precautions 3. Hypothyroidism: c/w levothyroxine 4. DM: Bl sugars well controlled, will monitor closely. 5. CAD s/p stent: Stable, ASA on hold. Might benefit from beta chloe if BP remains elevated. 6. DVT px: SCD`s DNR/DNI, MOLST forms filled, daughter is HCP Stable for transfer to medical floor/telemetry. D/w Dr Bowman
[2018-09-30] MEDS ORDERED: Magnesium Sulfate 1 GM IV* 1 GM/100 ML BAG IV ONE (10:00)
[2018-09-30] MEDS: CARBIDOPA PO SCH ×3 (10:19→20:13)
[2018-09-30] MEDS: LEVODOPA PO SCH ×3 (10:19→20:13)
[2018-09-30 11:01] LABS: Hematocrit 22 % (36-46); Hemoglobin 7.2 g/dL (14.0-18.0); Mean Corpuscular HGB Conc 33 g/dL (31-36); Mean Corpuscular Hemoglobin 30 pg (27-31); Mean Corpuscular Volume 91 fL (80-94); Mean Platelet Volume 9.1 fL (7.4-10.4); Platelet Count 187 10^3/uL (150-450); Red Blood Count 2.37 10^6 /uL (4.18-5.48); Red Cell Distribution Width 15 % (10.5-15); White Blood Count 7.6 10^3/uL (3.5-10.8)
[2018-09-30] MEDS: Famotidine TAB* 20 MG PO SCH (11:49)
[2018-09-30 13:06] LABS: Hematocrit 23 % (36-46); Hemoglobin 7.9 g/dL (14.0-18.0)
[2018-09-30 17:08] LABS: BUN/Creatinine Ratio 10.3 (8-20); Calcium 7.4 mg/dL (8.6-10.3); EGFR African American 78.9 (>60); EGFR Non-African American 65.2 (>60); Phosphorus 2.6 mg/dL (2.5-5.0); Potassium 3.8 mmol/L (3.5-5.0)
[2018-10-01] MEDS: Levothyroxine TAB* 50 MCG TAB PO SCH (05:34)
[2018-10-01] MEDS: Levothyroxine TAB* 175 MCG TAB PO SCH (05:34)
[2018-10-01] MEDS: NS 0.9% 1000 ML** 1,000 ML IV SCH (07:13)
[2018-10-01] MEDS: Insulin LISPRO* 1 UNITS UNIT SUBCUT SCH ×4 (09:34→22:10)
[2018-10-01] MEDS: Selegiline TAB* 5 MG PO SCH ×2 (09:47→13:13)
[2018-10-01] MEDS: CARBIDOPA PO SCH ×3 (09:47→22:28)
[2018-10-01] MEDS: Finasteride TAB* 5 MG PO SCH (09:47)
[2018-10-01] MEDS: LEVODOPA PO SCH ×3 (09:47→22:28)
[2018-10-01] MEDS: Famotidine TAB* 20 MG PO SCH (09:47)
--- NOTE | 2018-10-01 14:12 | PN ---
Subjective Date of Service: 10/01/18 Interval History: Denies any complaints. Reports feeling well Past Medical History: Unchanged from Admission Objective Active Medications: Acetaminophen (Tylenol Tab*) 650 mg PO Q4H PRN PRN Reason: FEVER/PAIN Carbidopa/Levodopa (Rytary Er 48.75 Mg-195 Mg Cap) 3 cap PO TID [facility] Last Admin: 10/01/18 13:13 Dose: 3 cap Dextrose (D50w Syringe 50 Ml*) 12.5 gm IV PUSH .FOR FS < 60 - SS PRN PRN Reason: FS < 60 Finasteride (Proscar Tab*) 5 mg PO DAILY [facility] Last Admin: 10/01/18 09:47 Dose: 5 mg Insulin Human Lispro (Humalog*) 0 units SUBCUT [facility]; Protocol Last Admin: 10/01/18 13:13 Dose: 3 units Levothyroxine Sodium (Synthroid Tab*) 175 mcg PO DAILY@0600 [facility] Last Admin: 10/01/18 05:34 Dose: 175 mcg Levothyroxine Sodium (Synthroid Tab*) 50 mcg PO DAILY@0600 [facility] Last Admin: 10/01/18 05:34 Dose: 50 mcg Pantoprazole Sodium (Protonix Tab*) 40 mg PO BID [facility] Selegiline HCl (Eldepryl Tab*) 5 mg PO QAM [facility] Last Admin: 10/01/18 09:47 Dose: 5 mg Selegiline HCl (Eldepryl Tab*) 5 mg PO 1200 [facility] Last Admin: 10/01/18 13:13 Dose: 5 mg Vital Signs - 8 hr 10/01/18 10/01/18 10/01/18 08:00 08:01 13:09 Temperature 98.2 F 98.2 F Pulse Rate 73 70 Respiratory 17 16 16 Rate Blood Pressure 172/65 166/65 (mmHg) O2 Sat by Pulse 98 95 Oximetry Oxygen Devices in Use Now: Nasal Cannula Eyes: No Scleral Icterus Ears/Nose/Mouth/Throat: NL Teeth, Lips, Gums Neck: NL Appearance and Movements; NL JVP Respiratory: Symmetrical Chest Expansion and Respiratory Effort, Clear to Auscultation Cardiovascular: NL Sounds; No Murmurs; No JVD, RRR Skin: No Rash or Ulcers Neurological: Alert and Oriented x 3 Result Diagrams: 09/30/18 12:48 09/30/18 16:34 Microbiology and Other Data: Microbiology 09/29/18 07:45 Transfusion Reaction Culture - Preliminary Blood Bag No Growth Day 2 Transfusion Reaction Gram Stain - Final 09/29/18 07:35 Nasal Screen MRSA (PCR) - Final Nasal Mrsa Not Detected Assess/Plan/Problems-Billing Assessment: 88 year old male present back to the hospital for reccurent Lower GI bleed. - Patient Problems (1) GI bleed Current Visit: Yes Status: Acute Code(s): K92.2 - GASTROINTESTINAL HEMORRHAGE, UNSPECIFIED SNOMED Code(s): 63713190 Comment: s/p Colonoscopy Rectal Ulcer s/p clipping Recd 2 units PRBC Hemodynamically stable, transferred from ICU IV PPI switched to PO Aspirin on hold Follow H/H (2) Hypertension Current Visit: Yes Status: Acute Code(s): I10 - ESSENTIAL (PRIMARY) HYPERTENSION SNOMED Code(s): 97585798 Comment: On Fludricortisone at home for unclear reasons.Currently on hold Recd IVF and PRBC here with elevated BP BP 160s-170s Will start Metoprolol for BP control in light of his CAD history Will wait to auto diuresis of fluid boluses he recd (3) CAD (coronary artery disease) Current Visit: Yes Status: Acute Code(s): I25.10 - ATHSCL HEART DISEASE OF [place] CORONARY ARTERY W/O ANG PCTRS SNOMED Code(s): 37464923 Comment: Aspirin on hold Stent in the past Start B chloe for hypertension and CAD (4) Parkinsons disease Current Visit: Yes Status: Acute Code(s): G20 - PARKINSON'S DISEASE SNOMED Code(s): 13625028 Comment: No signs of agitation Continue current medicaitons (5) Hypothyroidism Current Visit: Yes Status: Acute Code(s): E03.9 - HYPOTHYROIDISM, UNSPECIFIED SNOMED Code(s): 53939733 Comment: Continue Levothyroxine (6) Diabetes Current Visit: Yes Status: Acute Code(s): E11.9 - TYPE 2 DIABETES MELLITUS WITHOUT COMPLICATIONS SNOMED Code(s): 71683646 Comment: Stable
[2018-10-01] MEDS: Metoprolol Tartrate TAB* 25 MG PO SCH ×2 (14:28→22:33)
[2018-10-01] MEDS: Pantoprazole TAB * 40 MG TAB PO SCH (22:34)
[2018-10-02] MEDS ORDERED: Haloperidol INJ IV/IM* 5 MG/ML AMP IV SLOW PU PRN (00:30)
[2018-10-02] MEDS ORDERED: NS 0.9% 1000 ML** 1,000 ML IV SCH ×2 (01:30→11:30)
--- NOTE | 2018-10-02 01:32 | PN ---
Hospitalist Progress Note Date of Service: 10/02/18 CAT RESPONSE 88 yo M with PMH parkinsons, HTN, recurrent GIB admitted for GIB, lower s/p clipping today who became unresponsive after 2mg IV Haldol. Hospitalist called about patient who was becoming combative and agitated, striking at nursing staff , confused, chart reviewed, this is c/w prior behavior, order for 2mg IV haldol x1, QTC on last EKG 444, 2 minutes after Haldol given patient became unresponsive When I arrive to bedisde patient has sinus bradycardia rates in 20s, unresponsive, with pulse the following actions were taken, he is a known DNR at the time, --Bagging patient began -Atropine 0.4mg given (Time 0) -I then briefly lost radial pulse, 1mg of Epinephrine given (PEA), pulse returned with sinus tachycardia (60 seconds) -Mag 2mg given, followed by 250 cc bolus (90 seconds), pt remains in sinus tachycardia -EKG ordered shows sinus tachycardia in the 130s, diffuse repol, but no active ischemia -Pt never in wide based tachycardia while on monitor during event, but appears to have been triggered by torsades -Pt regains consciousness, breathing on his own, withdrawing to stimuli, VS 190s /100, HR 130s, satting 96% on face mask, RR 20s -Transferred to ICU On review of tele leading to event: shows brief wide based arrhythmia, concerning for torsades at time of his symptoms: Stat labs CMP, Mag, Trop, INR, Lactic drawn-Results pending CXR: Rotated but no solitario consolidation PE in ICU Confused but following commands, denies pain verbal with slurred speech which is his baseline per nursing PEERLA, follows commands for cranial nerve exam 2-12 intact, strength 5/5 in blt UE and LE Alert, oriented to self and place Sinus tachycardia no MRG CTABL Belly distended but soft, NT on palpation Ext with non pitting edema 1+ pulse in DP Overall this appears to have been torsades triggered by Haldol, last QTC on admission 444 though possibly elongated since then, will await electrolytes and replete aggressively, no e/o acute ischemic event, likely troponins will be elevated, will trend, pt does not complain of chest pain Will actively follow throughout evening, family attempted to be called several times with no answer. MOLST form only clarifies DNR, and no other directives at this time, thus above actions taken in line with his documented goals of care.
[2018-10-02 01:54] LABS: ABS Basophils 0 10^3/ul (0-0.2); ABS Eosinophils 0.2 10^3/ul (0-0.6); ABS Lymphocytes 1.5 10^3/ul (1.0-4.8); ABS Monocytes 0.9 10^3/ul (0-0.8); ABS Neutrophils 8.4 10^3/ul (1.5-7.7); ABS Nucleated RBC 0 10^3/ul; Eosinophil % 1.5 %; Hematocrit 24 % (36-46); Hemoglobin 7.9 g/dL (14.0-18.0); Mean Corpuscular HGB Conc 33 g/dL (31-36); Mean Corpuscular Hemoglobin 30 pg (27-31); Mean Corpuscular Volume 91 fL (80-94); Mean Platelet Volume 8.8 fL (7.4-10.4); Nucleated Red Blood Cells % 0.1; Platelet Count 267 10^3/uL (150-450); Red Blood Count 2.61 10^6 /uL (4.18-5.48); Red Cell Distribution Width 14 % (10.5-15)
[2018-10-02] MEDS ORDERED: Calcium Gluconate INJ* 2 GM in NS 0.9% 100 ML* 100 ML IV ONE (01:56)
[2018-10-02 02:09] LABS: ALT 3 U/L (7-52); AST 18 U/L (13-39); Albumin 3.1 g/dL (3.2-5.2); Albumin/Globulin Ratio 1.3 (1-3); Alkaline Phosphatase 58 U/L (34-104); Anion Gap 11 mmol/L (2-11); BUN/Creatinine Ratio 7.9 (8-20); Blood Urea Nitrogen 11 mg/dL (6-24); CO2 Carbon Dioxide 18 mmol/L (22-32); Chloride 107 mmol/L (101-111); EGFR African American 58.4 (>60); EGFR Non-African American 48.2 (>60); Globulin 2.3 g/dL (2-4); Glucose 176 mg/dL (70-100); INR 1.08 (0.77-1.02); Magnesium 2.5 mg/dL (1.9-2.7); Potassium 3.6 mmol/L (3.5-5.0); Sodium 136 mmol/L (135-145); Total Protein 5.4 g/dL (6.4-8.9)
[2018-10-02 02:13] LABS: Troponin I 0.04 ng/mL (<0.04)
[2018-10-02] MEDS ORDERED: KCL 20 MEQ/100 ML IVPREMIX* 20 MEQ/100 ML BAG IV ONE (02:50)
[2018-10-02] MEDS: Levothyroxine TAB* 175 MCG TAB PO SCH (05:34)
[2018-10-02] MEDS: Levothyroxine TAB* 50 MCG TAB PO SCH (05:34)
[2018-10-02] MEDS: Metoprolol Tartrate TAB* 25 MG PO SCH ×2 (08:18→21:33)
[2018-10-02] MEDS: Insulin LISPRO* 1 UNITS UNIT SUBCUT SCH ×4 (08:18→21:33)
[2018-10-02] MEDS: Finasteride TAB* 5 MG PO SCH (08:18)
[2018-10-02] MEDS: Pantoprazole TAB * 40 MG TAB PO SCH ×2 (08:18→21:33)
[2018-10-02] MEDS: Selegiline TAB* 5 MG PO SCH ×2 (09:42→14:02)
--- NOTE | 2018-10-02 10:53 | PN ---
Date of Service: 10/02/18 Vital Signs: Temp Pulse Resp BP SpO2 FiO2 97.5 F 73 16 146/64 92 10/02/18 07:51 10/02/18 09:01 10/02/18 10:00 10/02/18 09:01 10/02/18 09:01 Physical Exam: Gen: Awake, alert, confused, can follow commands HEENT: atraumatic, normocephalic, PEERLA Lungs: clear to auscultation Cardiac: normal S1S1, rate 61, RSR on tele, no murmurs gallups or rubs noted Abdomen: benign, soft, no hepatomegaly Extremities: no clubbin, no cyanosis, large scar along the right anterior landeros from the knee to ankle with two areas of scabbing Neuro: confused at baseline, no further deficits noted Fluid Balance (Past 24 Hours): I= O= Net Intake & Output 09/30/18 10/01/18 10/02/18 10/03/18 06:59 06:59 06:59 06:59 Intake Total 6220 3135 3557 480 Output Total 1775 2675 2700 Balance 4445 460 857 480 Weight 266 lb 4.8 oz 266 lb 15.677 oz Intake: IV Fluids 5613 855 397 NS (0.9%) 5613 855 397 IVPB 220 NS (0.9%) 220 Oral 2280 2940 480 Packed Cells 607 Output: Urine 300 Damon 1775 2675 2400 Other: Estimated Void Large Large # Voids 1 1 Labs: Laboratory Results - last 24 hr 10/01/18 10/01/18 10/01/18 11:38 16:08 21:25 WBC RBC Hgb Hct MCV MCH MCHC RDW Plt Count MPV Neut % (Auto) Lymph % (Auto) Merrick % (Auto) Eos % (Auto) Baso % (Auto) Absolute Neuts (auto) Absolute Lymphs (auto) Absolute Monos (auto) Absolute Eos (auto) Absolute Basos (auto) Absolute Nucleated RBC Nucleated RBC % INR (Anticoag Therapy) Sodium Potassium Chloride Carbon Dioxide Anion Gap BUN Creatinine Est GFR ( Amer) Est GFR (Non-Af Amer) BUN/Creatinine Ratio Glucose POC Glucose (mg/dL) 169 H 138 H 151 H Lactic Acid Calcium Magnesium Total Bilirubin AST ALT Alkaline Phosphatase Troponin I Total Protein Albumin Globulin Albumin/Globulin Ratio 10/02/18 10/02/18 10/02/18 01:30 01:30 01:30 WBC 11.0 H RBC 2.61 L Hgb 7.9 L Hct 24 L MCV 91 MCH 30 MCHC 33 RDW 14 Plt Count 267 MPV 8.8 Neut % (Auto) 76.5 Lymph % (Auto) 14.0 Merrick % (Auto) 7.8 Eos % (Auto) 1.5 Baso % (Auto) 0.2 Absolute Neuts (auto) 8.4 H Absolute Lymphs (auto) 1.5 Absolute Monos (auto) 0.9 H Absolute Eos (auto) 0.2 Absolute Basos (auto) 0 Absolute Nucleated RBC 0 Nucleated RBC % 0.1 INR (Anticoag Therapy) 1.08 H Sodium 136 Potassium 3.6 Chloride 107 Carbon Dioxide 18 L Anion Gap 11 BUN 11 Creatinine 1.39 H Est GFR ( Amer) 58.4 Est GFR (Non-Af Amer) 48.2 BUN/Creatinine Ratio 7.9 L Glucose 176 H POC Glucose (mg/dL) Lactic Acid Calcium 8.0 L Magnesium 2.5 Total Bilirubin 0.70 AST 18 ALT 3 L Alkaline Phosphatase 58 Troponin I 0.04 H* Total Protein 5.4 L Albumin 3.1 L Globulin 2.3 Albumin/Globulin Ratio 1.3 10/02/18 10/02/18 10/02/18 01:30 05:14 07:50 WBC RBC Hgb Hct MCV MCH MCHC RDW Plt Count MPV Neut % (Auto) Lymph % (Auto) Merrick % (Auto) Eos % (Auto) Baso % (Auto) Absolute Neuts (auto) Absolute Lymphs (auto) Absolute Monos (auto) Absolute Eos (auto) Absolute Basos (auto) Absolute Nucleated RBC Nucleated RBC % INR (Anticoag Therapy) Sodium Potassium Chloride Carbon Dioxide Anion Gap BUN Creatinine Est GFR ( Amer) Est GFR (Non-Af Amer) BUN/Creatinine Ratio Glucose POC Glucose (mg/dL) 137 H Lactic Acid 5.4 H* 1.4 Calcium Magnesium Total Bilirubin AST ALT Alkaline Phosphatase Troponin I Total Protein Albumin Globulin Albumin/Globulin Ratio Studies: Patient Name: VENICE HICKS Medical Record#: [id number] Ordering Physician: Fatimah Van MD Acct.#: [id number] : 1930 Age: 88 Sex: M Location: INTENSIVE CARE UNIT Exam Date: 10/02/18 0112 ADM Status: ADM IN Order Information: CHEST AP OR PORT Accession Number: [id number] CPT: 57878 HISTORY: CAT confusion, GI bleed COMPARISONS: May 10, 2016 VIEWS: 2: frontal AP view of the chest at 1:24 AM FINDINGS: LINES AND TUBES: None. CARDIOMEDIASTINAL SILHOUETTE: The cardiomediastinal silhouette is normal for portable technique. PLEURA: The costophrenic angles are sharp. No pleural abnormalities are noted. LUNG PARENCHYMA: The lungs are clear. ABDOMEN: The upper abdomen is clear. There is no subphrenic gas. BONES AND SOFT TISSUES: No bone or soft tissue abnormalities are noted. IMPRESSION: NO ACTIVE CARDIOPULMONARY DISEASE. EKG INTERPRETATION ECG Report Patient Name VENICE HICKS Birthdate 1930 Sex M Order Number [id number] Date of ECG 10/02/2018 07:08:46 Interpretation Sinus rhythm.normal P axis, V-rate 60- 99 Low voltage, precordial leads.precordial leads <1.0mV Consider inferior infarct.Q >35mS in II III aVF Baseline wander in lead(s) V1 - BORDERLINE ECG - Nutrition: Clears, advanced for full liquid diet today Impression: 88 year old male present back to the hospital for reccurent Lower GI bleed that was unresponsive overnight with brief episode of unresponsiveness. 1. Arrhythmia - Likely Torsades in the presence of haldol administration - Received atropine, magnesium, bolus and one dose epi overnight with adequate response and reversal of symptoms - QTc 444 at admission - Patient fully awake and at baseline with no further issues noted today - Continue to monitor on telemetry - Avoid QT prolonging agents, do not give haldol if agitated 2. GIB, recurrent - s/p colonoscopy with rectal ulcer clipping - 2units PRBCs transfused - Continue PPI - No ASA - H&H stable 3. HTN - BP stable on metoprolol 4. CAD - With hx of stent, stable, outpatient f/u 5. Parkinson's - Continue sinemet - Supportive care 6. DM - BG stable on home regimen 7. Hypothyroidism - Continue synthroid DVT prophy: SCDs and ambulate in light of GIB Plan: Disposition: Downgrade to floor, stable Critical Care Time: 75 minutes
[2018-10-02] MEDS: CARBIDOPA PO SCH ×3 (11:14→21:33)
[2018-10-02] MEDS: LEVODOPA PO SCH ×3 (11:14→21:33)
[2018-10-02] MEDS ORDERED: NS 0.9% 500 ML* 500 ML IV ONE (11:30)
[2018-10-02] MEDS: Melatonin 3 MG TAB PO PRN (21:33)
[2018-10-03] MEDS: Levothyroxine TAB* 175 MCG TAB PO SCH (05:39)
[2018-10-03] MEDS: Levothyroxine TAB* 50 MCG TAB PO SCH (05:39)
[2018-10-03] MEDS: Insulin LISPRO* 1 UNITS UNIT SUBCUT SCH ×4 (07:10→22:49)
[2018-10-03] MEDS: Finasteride TAB* 5 MG PO SCH (08:09)
[2018-10-03] MEDS: Metoprolol Tartrate TAB* 25 MG PO SCH ×3 (08:09→22:49)
[2018-10-03] MEDS: Selegiline TAB* 5 MG PO SCH ×2 (08:09→11:42)
[2018-10-03] MEDS: Pantoprazole TAB * 40 MG TAB PO SCH ×3 (08:09→22:49)
[2018-10-03] MEDS: CARBIDOPA PO SCH ×4 (08:10→22:49)
[2018-10-03] MEDS: LEVODOPA PO SCH ×4 (08:10→22:49)
[2018-10-03 11:17] LABS: Hematocrit 25 % (36-46); Hemoglobin 8.2 g/dL (14.0-18.0); Mean Corpuscular HGB Conc 33 g/dL (31-36); Mean Corpuscular Hemoglobin 30 pg (27-31); Mean Corpuscular Volume 91 fL (80-94); Mean Platelet Volume 8.9 fL (7.4-10.4); Platelet Count 257 10^3/uL (150-450); Red Blood Count 2.74 10^6 /uL (4.18-5.48); Red Cell Distribution Width 15 % (10.5-15)
[2018-10-03 11:33] LABS: Albumin 3.4 g/dL (3.2-5.2); Albumin/Globulin Ratio 1.3 (1-3); BUN/Creatinine Ratio 9.6 (8-20); Calcium 8.5 mg/dL (8.6-10.3); EGFR African American 60.4 (>60); EGFR Non-African American 49.9 (>60); Globulin 2.6 g/dL (2-4); Magnesium 1.9 mg/dL (1.9-2.7); Phosphorus 3.8 mg/dL (2.5-5.0); Potassium 4.1 mmol/L (3.5-5.0); Total Bilirubin 0.7 mg/dL (0.2-1.0)
--- NOTE | 2018-10-03 15:28 | CONSULT ---
Consult Consult: Consult for Medical Decision Making Capacity S: Psychiatry is asked to evaluate in this 88 year old white male for decision making capacity. Primary team is concerned about possible stroke. He has no prior past psychiatric history. He has a history of Parkinson disease and his home care worker were at bedside He is admitted to the Hospitalist service for GI bleed. The patient mentioned that he doesnt want to get a CT scan of his head because he needs to get out of the fog in [place]. He was unable to understand the risks and benefits of refusing the diagnostic test. He was unable to understand the purpose of testing. He denied suicidal ideation, intent or plan. He denied homicidal ideation intent or plan. He denied voices or visions. O: 88 year old white male appears older than stated age , dressed in patient gown, calm, cooperative. Flat affect. Disorganized thoughts. No delusions or preoccupations. He denied SI or HI. Insight and judgment poor He knows current place, month, day and year. He knows the name of the current president. A/P: Capacity: 88 year old white male with a history of Parkinson's disease. DX: Patient lacks capacity for making medical decision making at this time specially in regards to declining CT brain. Patient is not a danger to himself or others and doesnt require Psychiatric inpatient admission at this time. Risk assessment: No past suicide attempts and no access to firearms. The consulting Physician was contacted and informed of the following recommendations, and is in agreement with the plan. Patient informed of follow up care resources and that if he becomes suicidal to call 911. He was also notified 24 hour availability of the ER. As capacity is subject to change at any time, feel free to consult Psychiatry again in the event of any changes.
[2018-10-03] MEDS ORDERED: LORazepam INJ* 2 MG/ML 1 ML VIAL IV PUSH ONE ×2 (19:51→22:34)
--- NOTE | 2018-10-03 21:01 | PN ---
Subjective Date of Service: 10/03/18 Interval History: Pt seen and examined. Meds and labs reviewed. CC: N/A ROS: Unable to reliably obtain ROS PHYSICAL EXAM: GEN APPEARANCE: Awake, not in acute distress, Ox3; able to answer simple orientation questions, however, speaks unintelligibly; this is somewhat reverse of symptoms from yesterday by staff where they noted clear words but did not make any sense HEENT: NC/AT, PERRLA, moist oral mucosa, (-) throat erythema NECK: Soft, supple, (-) cervical LAD, (-)JVD HEART: S1S2 WNL, RRR, No MRG CHEST: CTA, BL, GAE, No W/R/R ABD: Soft, ND/NT, NABS 4x Q EXT: No C/C/E SKIN: Warm to touch PSYCH: Could not be reliably obtained Past Medical History: Unchanged from Admission Objective Active Medications: Acetaminophen (Tylenol Tab*) 650 mg PO Q4H PRN PRN Reason: FEVER/PAIN Carbidopa/Levodopa (Rytary Er 48.75 Mg-195 Mg Cap) 3 cap PO TID [facility] Last Admin: 10/03/18 14:18 Dose: 3 cap Dextrose (D50w Syringe 50 Ml*) 12.5 gm IV PUSH .FOR FS < 60 - SS PRN PRN Reason: FS < 60 Finasteride (Proscar Tab*) 5 mg PO DAILY [facility] Last Admin: 10/03/18 08:09 Dose: 5 mg Sodium Chloride (Ns 0.9% 1000 Ml) 1,000 mls @ 75 mls/hr IV PER RATE [facility] Insulin Human Lispro (Humalog*) 0 units SUBCUT ACHS [facility]; Protocol Last Admin: 10/03/18 16:25 Dose: Not Given Levothyroxine Sodium (Synthroid Tab*) 175 mcg PO DAILY@0600 [facility] Last Admin: 10/03/18 05:39 Dose: 175 mcg Levothyroxine Sodium (Synthroid Tab*) 50 mcg PO DAILY@0600 [facility] Last Admin: 10/03/18 05:39 Dose: 50 mcg Lorazepam (Ativan Inj*) 0.5 mg IV PUSH ONCE [facility] Stop: 10/04/18 06:31 Melatonin (Melatonin) 3 mg PO BEDTIME PRN PRN Reason: SLEEP Last Admin: 10/02/18 21:33 Dose: 3 mg Metoprolol Tartrate (Lopressor Tab*) 25 mg PO BID [facility] Last Admin: 10/03/18 08:09 Dose: 25 mg Pantoprazole Sodium (Protonix Tab*) 40 mg PO BID [facility] Last Admin: 10/03/18 08:09 Dose: 40 mg Selegiline HCl (Eldepryl Tab*) 5 mg PO QAM [facility] Last Admin: 10/03/18 08:09 Dose: 5 mg Selegiline HCl (Eldepryl Tab*) 5 mg PO 1200 [facility] Last Admin: 10/03/18 11:42 Dose: 5 mg Vital Signs - 8 hr 10/03/18 10/03/18 10/03/18 15:26 16:47 20:17 Temperature 98.3 F 98.3 F Pulse Rate 57 57 Respiratory 20 20 20 Rate Blood Pressure 144/63 144/63 (mmHg) O2 Sat by Pulse 98 98 Oximetry Oxygen Devices in Use Now: None Result Diagrams: 10/03/18 11:00 10/03/18 11:00 Microbiology and Other Data: Microbiology 09/29/18 07:45 Transfusion Reaction Culture - Preliminary Blood Bag No Growth Day 2 Transfusion Reaction Gram Stain - Final 09/29/18 07:35 Nasal Screen MRSA (PCR) - Final Nasal Mrsa Not Detected Assess/Plan/Problems-Billing Assessment: 88 year old male present back to the hospital for reccurent Lower GI bleed. - Patient Problems (1) Confusion Current Visit: Yes Status: Acute Code(s): R41.0 - DISORIENTATION, UNSPECIFIED SNOMED Code(s): 773119338 Comment: -Ordered CT of head earlier but pt refused similar to pt refusing colonoscopy -Consulted Psych and appreciate Dr. Madalyn flores---pt does not have capacity -D/W Dr. Li---will give low dose BZD 30 mins [address] to [address] of head in AM -Likely cardiogenic near syncope the day before in the setting of Haldol being given in pt w/likely PD dementia? -Avoid any antipsychotics -Will await any further input from Neuro (2) Arrhythmia Current Visit: Yes Status: Acute Code(s): I49.9 - CARDIAC ARRHYTHMIA, UNSPECIFIED SNOMED Code(s): 771937550 Comment: -Likely Torsades while in ICU -Avoid QT prolonging agentsespecially antipsychotics given above (3) GI bleed Current Visit: Yes Status: Acute Code(s): K92.2 - GASTROINTESTINAL HEMORRHAGE, UNSPECIFIED SNOMED Code(s): 17184468 Comment: -S/P Flex sig w/clipping of rectal ulcer -Stable H&H (4) Hypertension Current Visit: Yes Status: Acute Code(s): I10 - ESSENTIAL (PRIMARY) HYPERTENSION SNOMED Code(s): 61237238 Comment: -Continue Metoprolol (5) Hypothyroidism Current Visit: Yes Status: Acute Code(s): E03.9 - HYPOTHYROIDISM, UNSPECIFIED SNOMED Code(s): 52408211 Comment: -Continue Levothyroxine -Will obtain TSH level in AM (6) DVT prophylaxis Current Visit: No Status: Acute Code(s): NPZ7893 - SNOMED Code(s): 883275867 Comment: -Continue SCD Status and Disposition: -As above
[2018-10-03] MEDS: Melatonin 3 MG TAB PO PRN (22:17)
[2018-10-03] MEDS ORDERED: Ziprasidone IM INJ* 20 MG/ML VIAL IM PRN (22:36)
[2018-10-03] MEDS ORDERED: LORazepam INJ* 2 MG/ML 1 ML VIAL IV PUSH PRN (22:36)
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
[2018-10-04] MEDS ORDERED: LORazepam INJ* 2 MG/ML 1 ML VIAL IV PUSH SCH (06:30)
[2018-10-04] MEDS: Insulin LISPRO* 1 UNITS UNIT SUBCUT SCH ×3 (09:05→16:16)
[2018-10-04] MEDS: Levothyroxine TAB* 50 MCG TAB PO SCH (09:09)
[2018-10-04] MEDS: Metoprolol Tartrate TAB* 25 MG PO SCH (09:09)
[2018-10-04] MEDS: Selegiline TAB* 5 MG PO SCH ×2 (09:09→12:07)
[2018-10-04] MEDS: LEVODOPA PO SCH ×2 (09:09→12:53)
[2018-10-04] MEDS: Pantoprazole TAB * 40 MG TAB PO SCH (09:09)
[2018-10-04] MEDS: CARBIDOPA PO SCH ×2 (09:09→12:53)
[2018-10-04] MEDS: Levothyroxine TAB* 175 MCG TAB PO SCH (09:09)
[2018-10-04] MEDS: Finasteride TAB* 5 MG PO SCH (09:09)
--- NOTE | 2018-10-04 10:20 | HP ---
HISTORY AND PHYSICAL: DATE OF ADMISSION: 09/27/18 PRIMARY CARE PROVIDER: Dr. Blair. CHIEF COMPLAINT: Recurrence of lower GI bleed. HISTORY OF PRESENT ILLNESS: Mr. Edward is an 88-year-old man with Parkinson 's disease and dementia, coronary artery disease, status post stent in 2008, hypertension, hypothyroid, BPH, status post TURP, diabetes, and recent admission for lower GI bleed who is presenting 1 day after AMA discharge for recurrence of lower GI bleed. Of note, most of his history is obtained per chart as the patient is a poor historian. The patient had presented 3 days prior to this presentation with lower GI bleeding in the context of a fall. He was ambulating to the bathroom at 3:30 in the morning and felt dizzy and fell. He was able to use the toilet and had noted bright red blood in the toilet and went to the emergency room. He was admitted with plan for possible colonoscopy, although the patient had been refusing treatment. He was frequently asking to go home thinking doctors are not doing anything for him. As he did not have recurrence of GI bleed in the hospital and his hemoglobin stable, his caregiver had showed up on evening of discharge and she and the patient made decision to take patient home against medical advice with close followup. The patient has been home less than 1 day and now has experienced recurrence of GI bleed. He denies lightheadedness, fall , or abdominal pain prior to this current presentation Otherwise, 10-point review of systems is negative. PAST MEDICAL HISTORY: 1. Parkinson's disease. 2. Coronary artery disease, status post LAD stent in 2008. 3. Hypertension. 4. Hypothyroidism. 5. BPH status post TURP. 6. Frequent UTIs. 7. GERD. 8. Type 2 diabetes. PAST SURGICAL HISTORY: Right lower extremity operation for osteomyelitis. HOME MEDICATIONS: 1. Omeprazole 20. 2. Aspirin 81. 3. Levothyroxine 225 mcg daily. 4. Finasteride 5 mg daily. 5. Selegiline 5 mg b.i.d. 6. MiraLAX 17 g daily as needed for constipation. 7. Metformin 500 mg daily. 8. Ropinirole 1 mg 3 times a day. 9. Rytary 3 tabs t.i.d. ALLERGIES: STATINS "make him sick." FAMILY HISTORY: Noncontributory. 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 Quit smoking 40 years ago with 10 pack year history. Prior alcohol use disorder with less drinking since care home, but unable to quantify. Healthcare proxy, daughter, Fatimah Salazar. PHYSICAL EXAMINATION GENERAL: Chronically ill-appearing elderly man, not in acute distress. VITAL SIGNS: Afebrile, heart rate 60s, blood pressure 138/77, respiratory rate 12, oxygen saturation 95% on 2 L. HEENT: Pupils equal, round, and reactive to light. No icterus. NECK: Supple. No JVD. LUNGS: Clear to auscultation bilaterally. CARDIAC: Regular rate and rhythm. No murmurs, gallops, rubs. ABDOMEN: Soft, nontender, nondistended. RECTAL EXAM: The patient declines. EXTREMITIES: Warm and well perfused. No edema. LABORATORY DATA/DIAGNOSTIC STUDIES: Labs reviewed and remarkable for hemoglobin 12.3, baseline before discharge 2 days ago 13. INR 1.04, creatinine 1.39 which is at baseline from prior admission, BUN 17. LFTs unremarkable. ASSESSMENT AND PLAN: An 88-year-old man with Parkinson disease, diabetes, hypothyroid, coronary artery disease, is presenting with acute bright red blood per rectum, likely lower gastrointestinal bleed, although brisk upper gastrointestinal bleed is likely; however, would expect the patient's hemoglobin to be much lower, blood to be mixed with black, and also BUN to be more elevated. Most likely diverticulosis, hemorrhoid, or arteriovenous malformation, but also could be colon cancer. 1. Gastrointestinal bleed. We will continue to monitor hemoglobin closely, likely that he will need a colonoscopy again during this admission, although he refused that last admission. We will consult GI this morning. Had trial of PPI IV BID during last admission, but as suspicion for UGIB remains low, will only continue on home PPI PO. 2. Parkinson disease. Continue carbidopa/levodopa formulary substitute and selegiline. 3. For coronary artery disease, we will hold the patient's aspirin. 4. Orthostasis: cont home fludrocortisone 5. BPH: cont finasteride 6. Hypothyroid: cont home levothyroxine DVT PPx: hold in setting of GI bleed The patient is full code with healthcare proxy Janet Leung. The patient also states he allows Martha Akbar, one of his home health aides, to make decisions for him and she is his closest local contact. TIME SPENT: Approximately 60 minutes spent on admission of this patient, more than half of which was spent at bedside for interview and exam. [id number]/[facility] #: [id number] Note: Original report was electronically signed on 09/27/18 0932 EMNG
[2018-10-04 16:11] VITALS: BP 146/62
[2018-10-04] MEDS ORDERED: LEVODOPA PO SCH (17:10)
[2018-10-04] MEDS ORDERED: CARBIDOPA PO SCH (17:10)
--- NOTE | 2018-10-04 22:04 | CONS ---
CC: Dr. Mccauley * NEUROLOGY CONSULTATION: DATE OF CONSULT: 10/04/18 LOCATION: He is an inpatient in room 449. REFERRING PROVIDER: Dr. Vila. CHIEF COMPLAINT: Altered mental status, history of Parkinson disease. 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 He had followed with Dr. Alvarenga for many years and Dr. Mccauley in the last couple of years. He was admitted to the hospital this time on 09/27/18 with lower GI bleeding. He was anemic and required transfusions. He was admitted a couple of days prior to that for a lower GI procedure. He since had a second GI procedure and bleeding has been controlled. He is accompanied by one of his caretakers. She has known him for a couple of years. He admits that his memory is somewhat affected by the Parkinson's. He admits to visual hallucinations, which in the past he really did not think too much of as they were not real. During this hospitalization, he has had periods of agitation and hallucinations and he has been combative. He received a dose of Haldol 1 in the evenings and he had slurred speech and was very lethargic the next day. Currently, he is quite lucid. He admits that he has nightmares at times and ends up feeling like he has to fight attackers. In regards to his Parkinson disease, he said it has mainly been problems with tremor, but also balance. He says over the "30 years" that he has had this he has maybe fallen 5 or 6 times altogether. He says his main symptom when his medications wears off is tremor. PAST MEDICAL HISTORY: Otherwise notable for coronary artery disease with stenting, diabetes, hypothyroidism, hypertension, BPH, TURP done several times, cataract surgery. CURRENT MEDICATIONS: Consist of: 1. Rytary 48.75/195 three tablets 3 times per day. 2. Selegiline 5 mg p.o. q.a.m. and 5 mg at noon. 3. Melatonin 3 mg p.o. at bedtimes. 4. Levothyroxine 50 mcg p.o. daily. 5. Sliding scale insulin. 6. Proscar 5 mg p.o. daily. ALLERGIES: He is listed as having allergies to STATINS. Haldol is apparently listed as an allergy, but it was a reaction that caused him to be sedated and dysarthric, I believe. PHYSICAL EXAM: He is well nourished and overweight. Temperature most recently 99.3, blood pressure 146/62, heart rate is in the 60s and seems regular, respiratory rate is 20, and oxygen saturation is 96% on room air. Heart tones are distant, but I do not hear any murmurs. Neck is supple. Oral mucosa is moist and atraumatic. On neurological exam, facial musculature is symmetric with grade 2 hypomimia. Speech is soft, but intelligible. He has an accent. Eye movements are notable for some impersistence of gaze, but full extraocular movements. Motor exam reveals some cogwheel rigidity of the limbs, particularly the left side. He has a mild intermittent rest tremor in the left hand. He is alert and actually quite oriented and able to give a good meaningful history. Language is fluent. Attention and concentration are somewhat impaired as he looses his train of thought. DIAGNOSTIC STUDIES/LAB DATA: Laboratory data includes CBC today with a hemoglobin of 8.2, which is stable over the last 3 days, white blood cell count is 10.0. Chemistries from yesterday notable for creatinine of 1.35, which is stable compared to his historical values. Glucose 177. IMPRESSION: Impression is that of delirium in a patient with Parkinson disease associated dementia. He currently seems pretty lucid. I discussed the problems of patients with Parkinson's who become hospitalized or have medical illnesses becoming delirious. I recommended cutting back his selegiline to 5 mg in the morning only and his last Rytary dose to just 2 tablets instead of 3. If he does require a sedative, I would recommend starting very low dose Seroquel at 25 mg at bedtime. I would avoid haloperidol given his Parkinson disease and dementia. My understanding from reviewing the record is that he is probably going to be discharged tomorrow, so hopefully, he will have an uneventful night. He can follow up with Dr. Mccauley as an outpatient. [id number]/[facility] #: [id number] MENG
== END 2018-10-04 18:10 | disposition home health service (06) | DRG 393 ==
LOC: ED 03:12 → MED 06:15 → ICU 09-29 07:07 → MEDTELE 09-30 09:46 → ICU 10-02 01:06 → MEDTELE 10-02 10:55
PROVIDERS: ADMIT Internal Medicine; ATTEND Internal Medicine
PROC: 0W3P8ZZ Control Bleeding in Gastrointestinal Tract, Via Natural or Artificial Opening Endoscopic (ICD-10-PCS; 2018-09-27)
PROC: 0DJD8ZZ Inspection of Lower Intestinal Tract, Via Natural or Artificial Opening Endoscopic (ICD-10-PCS; principal; 2018-09-28)
PROC: 30233N1 Transfusion of Nonautologous Red Blood Cells into Peripheral Vein, Percutaneous Approach (ICD-10-PCS; 2018-09-29)
DX: K62.6 Ulcer of anus and rectum (principal); K62.5 Hemorrhage of anus and rectum; I10 Essential (primary) hypertension; E03.9 Hypothyroidism, unspecified; I25.10 Atherosclerotic heart disease of native coronary artery without angina pectoris; E78.00 Pure hypercholesterolemia, unspecified; J30.2 Other seasonal allergic rhinitis; I95.1 Orthostatic hypotension; K21.9 Gastro-esophageal reflux disease without esophagitis; N40.0 Benign prostatic hyperplasia without lower urinary tract symptoms; E66.3 Overweight; K59.09 Other constipation; F02.80 Dementia in other diseases classified elsewhere, unspecified severity, without behavioral disturbance, psychotic disturbance, mood disturbance, and anxiety; G20 Parkinson's disease; E11.36 Type 2 diabetes mellitus with diabetic cataract; Z98.41 Cataract extraction status, right eye; Z87.891 Personal history of nicotine dependence; Z88.8 Allergy status to other drugs, medicaments and biological substances; Z95.5 Presence of coronary angioplasty implant and graft; Z87.440 Personal history of urinary (tract) infections; D50.0 Iron deficiency anemia secondary to blood loss (chronic); I95.9 Hypotension, unspecified; R57.8 Other shock; Z66 Do not resuscitate; R00.1 Bradycardia, unspecified; R00.0 Tachycardia, unspecified; R32 Unspecified urinary incontinence; R41.0 Disorientation, unspecified; I49.9 Cardiac arrhythmia, unspecified; Z68.34 Body mass index [BMI] 34.0-34.9, adult
CPT/HCPCS: 36415; 71045; 80048; 80053; 83605; 83735; 84100; 84484; 85014; 85018; 85025; 85027; 85610; 85730; 86078; 86850; 86900; 86901; 86922; 87641; 93005; 99156; 99157; 99283; A9270-GY; G8978-GP-CJ; G8978-GP-CL; G8979-GP-CI; G8979-GP-CJ; G8987-GO-CM; G8988-GO-CI; J0610; J1630; J2060; J2250; J3010; J3475; J3480; P9040